=== PATIENT | male | born 1970 | race Two or more races ===

== ENCOUNTER 2018-03-30 11:02 | Inpatient (IN) | payer OTHER ==
[2018-03-30 13:07] VITALS: BMI 22.6
--- NOTE | 2018-03-30 13:14 | HP ---
CIWA Score - CIWA Score Nausea/Vomitin-Mild Nausea/No Vomiting Muscle Tremors: 4-Moderate,w/Arms Extend Anxiety: 3 Agitation: 1-Slight > Activity Paroxysmal Sweats: 1-Minimal Palms Moist Orientation: 0-Oriented Tacttile Disturbances: 2-Mild Itch/Numbness/Burn Auditory Disturbances: 1-Very Mild Visual Disturbances: 1-Very Mild Sensitivity Headache: 1-Very Mild CIWA-Ar Total Score: 15 Admission ROS BHS - HPI Chief Complaint: I'm tired of everyday drinking, I can't pay the rent anymore, I have to do something Allergies/Adverse Reactions: Allergies Allergy/AdvReac Type Severity Reaction Status Date / Time No Known Allergies Allergy Verified 03/30/18 13:10 History of Present Illness: 47 yo gentleman here for detox from alcohol. PATIENT GOES BY NAME: WAYLON ALVAREZ History of previous detox here years ago. No seizures, does have black outs. Exam Limitations: Clinical Condition - Ebola screening Have you traveled outside of the country in the last 21 days: No (N) Have you had contact with anyone from an Ebola affected area: No Have you been sick,other than usual withdrawal symptoms: No Do you have a fever: No - Review of Systems Constitutional: Loss of Appetite, Night Sweats, Changes in sleep, Weakness EENT: reports: No Symptoms Reported Respiratory: reports: No Symptoms reported Cardiac: reports: No Symptoms Reported GI: reports: Poor Fluid Intake, Vomiting, Indigestion, Abdominal cramping : reports: Frequency Musculoskeletal: reports: No Symptoms Reported Integumentary: reports: Dryness Neuro: reports: Tremors Endocrine: reports: No Symptoms Reported Hematology: reports: No Symptoms Reported Psychiatric: reports: Judgement Intact, Mood/Affect Appropiate, Orientated x3, Anxious Other Systems: Reviewed and Negative Patient History - Patient Medical History Hx Asthma: No Hx Cancer: No Hx Cardiac Disorders: No Hx Hypertension: No Hx Hypercholesterolemia: No Hx Pacemaker: No Hx Seizures: No Hx Diabetes: No Hx Gastrointestinal Disorders: No Hx Liver Disease: No Hx Genitourinary Disorders: No Hx Sexually Transmitted Disorders: No Hx Renal Disease (ESRD): No Hx Thyroid Disease: No Hx Human Immunodeficiency Virus (HIV): Yes (on meds, not sure of CD4 count) Hx Hepatitis C: Yes (treated, cleared) Hx Depression: Yes (insomnia) Hx Suicide Attempt: No Hx Bipolar Disorder: No Hx Schizophrenia: No - Patient Surgical History Other Surgical History: hemorrhoid surgery 2008 - PPD History Previous Implant?: Yes Documented Results: Negative w/o proof Implanted On Prior R Admission?: No PPD to be Administered?: Yes - Reproductive History Patient is a Female of Child Bearing Age (11 -55 yrs old): No (male) - Smoking Cessation Smoking history: Current every day smoker Have you smoked in the past 12 months: Yes Aproximately how many cigarettes per day: 20 Initiated information on smoking cessation: Yes 'Breaking Loose' booklet given: 03/30/18 - Substance & Tx. History Hx Alcohol Use: Yes Hx Substance Use: No Substance Use Type: Alcohol Hx Substance Use Treatment: Yes (detox) - Substances Abused alcohol Route: Oral Frequency: Daily Amount used: six 24 oz malt liquor Rey Cobra; 1/2 pint vodka Age of first use: 14 Date of Last Use: 03/30/18 Family Disease History - Family Disease History Family Disease History: Other: Father (, murdered, etoh), Mother ( , murdered), Brother (one - healthy), Sister (one - ? heroin use), Son ( one age 17 - healthy) Admission Physical Exam BHS - Vital Signs Vital Signs: Vital Signs - 24 hr 03/30/18 13:05 Temperature 97.8 F Pulse Rate 82 Respiratory 20 Rate Blood Pressure 158/81 - Physical General Appearance: Yes: Nourished, Appropriately Dressed, Moderate Distress, Anxious HEENTM: Yes: EOMI, Hearing grossly Normal, Normocephalic, Normal Voice, Pharynx Normal, Other (tongue coated) Respiratory: Yes: Normal Breath Sounds, No Respiratory Distress Neck: Yes: No masses,lesions,Nodules Breast: Yes: Breast Exam Deferred Cardiology: Yes: Regular Rhythm, Regular Rate Abdominal: Yes: Non Tender, Flat, Soft Genitourinary: Yes: Frequency Back: Yes: Normal Inspection Musculoskeletal: Yes: full range of Motion, Gait Steady Extremities: Yes: Normal Inspection, Normal Range of Motion, Non-Tender Neurological: Yes: Fully Oriented, Alert, Motor Strength 5/5, Normal Mood/Affect , Normal Response, Numbness Integumentary: Yes: Normal Color, Warm, Other (bottom of left foot with skin from a large blister (per patient) from stepping on glass - no pain, non red) Lymphatic: Yes: Within Normal Limits - Diagnostic (1) Alcohol dependence with uncomplicated withdrawal Current Visit: Yes Status: Chronic (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
[2018-03-30] MEDS ORDERED: P-EPHED 60MG/TRIPROLIDI 2.5MG TABLET PO PRN (13:36)
[2018-03-30] MEDS ORDERED: MAGNESIUM CITRATE 300 ML BOTTLE PO PRN (13:36)
[2018-03-30] MEDS ORDERED: MAG HYDROX/AL HYDROX/SIMETH 30 ML UNIT-DOSE CUP PO PRN (13:36)
[2018-03-30] MEDS ORDERED: IBUPROFEN 400 MG TABLET (FP) PO PRN (13:36)
[2018-03-30] MEDS ORDERED: guaiFENesin/D-METHORPHAN HB 10 ML UNIT-DOSE CUPS PO PRN (13:36)
[2018-03-30] MEDS ORDERED: ACETAMINOPHEN 325 MG TABLET (FP) PO PRN (13:36)
[2018-03-30] MEDS ORDERED: hydrOXYzine PAMOATE 25 MG CAPSULE (FP) PO PRN (13:36)
[2018-03-30] MEDS ORDERED: chlordiazePOXIDE HCL 25 MG CAPSULE PO PRN (13:36)
[2018-03-30] MEDS ORDERED: LOPERAMIDE HCL 2 MG CAPSULE PO PRN (13:36)
[2018-03-30] MEDS ORDERED: MENTHOL/PHENOL 1 EACH UD MM PRN (13:36)
[2018-03-30] MEDS ORDERED: MAGNESIUM HYDROX 2400MG/30ML ORAL SUSPENSION 30 ML CUP PO PRN (13:36)
[2018-03-30] MEDS ORDERED: PATIENT'S OWN MEDICATION (NON-FORMULARY) (Pregabalin [Lyrica -] 150 MG) PO SCH (14:00)
[2018-03-30] MEDS ORDERED: chlordiazePOXIDE HCL 25 MG CAPSULE PO ONE (14:30)
[2018-03-30 17:01] LABS: URINE APPEARANCE CLEAR; URINE BILIRUBIN NEGATIVE (<2.0 mg/dL); URINE COLOR COLORLESS; URINE GLUCOSE (UA) NEGATIVE (NEGATIVE); URINE KETONE NEGATIVE (NEGATIVE); URINE LEUK ESTERASE NEGATIVE (NEGATIVE); URINE NITRITE NEGATIVE (NEGATIVE); URINE PROTEIN NEGATIVE (NEGATIVE); URINE UROBILINOGEN NEGATIVE mg/dL (0.2-1.0)
[2018-03-30] MEDS: chlordiazePOXIDE HCL 25 MG CAPSULE PO SCH ×2 (18:29→22:19)
[2018-03-30] MEDS ORDERED: PREGABALIN 100 MG CAPSULE ONE (21:19)
[2018-03-30] MEDS ORDERED: PREGABALIN 50 MG CAPSULE ONE (21:19)
[2018-03-30] MEDS ORDERED: MELATONIN 5 MG TABLETS PO PRN (22:00)
[2018-03-30] MEDS: THIAMINE HCL 100 MG TABLET (FP) PO SCH (22:19)
[2018-03-30] MEDS: PREGABALIN 100 MG, PREGABALIN 50 MG PO SCH (22:19)
[2018-03-30] MEDS: NICOTINE POLACRILEX 4 MG GUM BUC PRN (22:42)
[2018-03-31] MEDS: chlordiazePOXIDE HCL 25 MG CAPSULE PO SCH ×4 (05:13→22:33)
[2018-03-31] MEDS ORDERED: PREGABALIN 100 MG CAPSULE ONE ×3 (05:15→21:24)
[2018-03-31] MEDS ORDERED: PREGABALIN 50 MG CAPSULE ONE ×3 (05:16→21:25)
[2018-03-31] MEDS: PREGABALIN 100 MG, PREGABALIN 50 MG PO SCH ×3 (05:16→22:32)
[2018-03-31] MEDS: ELVITEG/COB/EMTRI/TENOF (GENVOYA) TABLET (NF) PO SCH (07:46)
[2018-03-31] MEDS: NICOTINE POLACRILEX 4 MG GUM BUC PRN ×2 (07:47→10:20)
[2018-03-31] MEDS: PRENATAL VITAMINS W/ FOLIC ACID TABLET (FP) PO SCH (10:17)
[2018-03-31 10:53] LABS: HEMATOCRIT 40.6 % (35.4-49); HEMOGLOBIN 13.5 GM/dL (11.7-16.9); MCH 32.8 pg (25.7-33.7); MCHC 33.2 g/dl (32.0-35.9); MEAN CELL VOLUME 98.9 fl (80-96); MEAN PLT VOLUME 8.6 fl (7.5-11.1); PLATELET COUNT 91 K/MM3 (134-434); RBC 4.11 M/mm3 (4.00-5.60); RDW 14.8 % (11.9-15.9); WHITE BLOOD COUNT 2.3 K/mm3 (4.0-10.0)
[2018-03-31 11:08] LABS: CHLORIDE 103 mmol/L (98-107); POTASSIUM 3.7 mmol/L (3.5-5.1); SODIUM 140 mmol/L (136-145)
[2018-03-31 11:28] LABS: ALBUMIN 3.6 g/dl (3.4-5.0); ALK PHOS 150 U/L (45-117); ANION GAP 10 MMOL/L (8-16); BLOOD UREA NITROGEN 13 mg/dL (7-18); CALCIUM 8.6 mg/dL (8.5-10.1); CO2 27 mmol/L (21-32); CREATININE 0.9 mg/dL (0.7-1.3); GLUCOSE,RANDOM 113 mg/dL (74-106); SGOT/AST 62 U/L (15-37); SGPT/ALT 62 U/L (12-78); TOT PROT 8.2 g/dl (6.4-8.2)
--- NOTE | 2018-03-31 15:26 | CONSULT ---
[facility] Psychiatric Consult - Data Date of interview: 03/31/18 Admission source: Self-referred Identifying data: Mr Iglesias is a 47 years old single male, father of a 16 years old son, unemployed on SSI, domiciled seeking detox treatment for alcohol Medical History: Significant for HIV diagnosed in 2006, neuropathy, history of treatment for hepatitis C and surgery for hemorrhoid in 2008. Smokes cigarettes 1 ppd Psychiatric History: Denies histoy of previous psychiatric treatment. However reports suffering from insomnia and he is prescribed Ambien 10 mg po HS Physical/Sexual Abuse/Trauma History: Denies history of emotional, physical or sexual abuse as well as DV relationship. No service Additional Comment: Reports history of 2 previous misdemeanor arrests Mental Status Exam - Mental Status Exam Alert and Oriented to: Time, Place, Person Cognitive Function: Fair Patient Appearance: Well Groomed Mood: Hopeful, Euthymic Patient Behavior: Cooperative Speech Pattern: Clear Voice Loudness: Normal Thought Process: Intact, Goal Oriented Thought Disorder: Not Present Hallucinations: Denies Suicidal Ideation: Denies Homicidal Ideation: Denies Insight/Judgement: Poor Sleep: Poorly Appetite: Good Muscle strength/Tone: Normal Gait/Station: Normal Psychiatric Findings - Problem List ([place] 1, 2,3) (1) Alcohol-induced sleep disorder Current Visit: Yes Status: Acute (2) Alcohol dependence with uncomplicated withdrawal Current Visit: Yes Status: Acute (3) Nicotine dependence Current Visit: Yes Status: Chronic Qualifiers: Nicotine product type: cigarettes Substance use status: uncomplicated Qualified Code(s): F17.210 - Nicotine dependence, cigarettes, uncomplicated (4) HIV (human immunodeficiency virus infection) Current Visit: Yes Status: Chronic (5) 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 2) Continue inpatient detoxification
--- NOTE | 2018-03-31 15:50 | PN ---
S CIWA - CIWA Score Nausea/Vomitin-Mild Nausea/No Vomiting Muscle Tremors: 3 Anxiety: 3 Agitation: 2 Paroxysmal Sweats: 1-Minimal Palms Moist Orientation: 1-Uncertain about Date Tacttile Disturbances: 1-Very Mild Itch/Numbness Auditory Disturbances: 1-Very Mild Visual Disturbances: 0-None Headache: 0-None Present CIWA-Ar Total Score: 13 BHS Progress Note (SOAP) Subjective: sweat tremor gi distress anxiety trouble sleep at night Objective: 03/31/18 15:56 Vital Signs Temperature 97.0 F L 03/31/18 15:21 Pulse Rate 69 03/31/18 15:21 Respiratory Rate 18 03/31/18 15:21 Blood Pressure 104/59 03/31/18 15:21 O2 Sat by Pulse Oximetry (%) Laboratory Last Values WBC 2.3 K/mm3 (4.0-10.0) L 03/31/18 08:00 RBC 4.11 M/mm3 (4.00-5.60) 03/31/18 08:00 Hgb 13.5 GM/dL (11.7-16.9) 03/31/18 08:00 Hct 40.6 % (35.4-49) 03/31/18 08:00 MCV 98.9 fl (80-96) H 03/31/18 08:00 MCH 32.8 pg (25.7-33.7) 03/31/18 08:00 MCHC 33.2 g/dl (32.0-35.9) 03/31/18 08:00 RDW 14.8 % (11.9-15.9) 03/31/18 08:00 Plt Count 91 K/MM3 (134-434) L 03/31/18 08:00 MPV 8.6 fl (7.5-11.1) 03/31/18 08:00 Sodium 140 mmol/L (136-145) 03/31/18 08:00 Potassium 3.7 mmol/L (3.5-5.1) 03/31/18 08:00 Chloride 103 mmol/L (98-107) 03/31/18 08:00 Carbon Dioxide 27 mmol/L (21-32) 03/31/18 08:00 Anion Gap 10 MMOL/L (8-16) 03/31/18 08:00 BUN 13 mg/dL (7-18) 03/31/18 08:00 Creatinine 0.9 mg/dL (0.7-1.3) 03/31/18 08:00 Creat Clearance w eGFR > 60 (>60) 03/31/18 08:00 Random Glucose 113 mg/dL (74-106) H 03/31/18 08:00 Calcium 8.6 mg/dL (8.5-10.1) 03/31/18 08:00 Total Bilirubin 1.0 mg/dL (0.2-1.0) 03/31/18 08:00 AST 62 U/L (15-37) H 03/31/18 08:00 ALT 62 U/L (12-78) 03/31/18 08:00 Alkaline Phosphatase 150 U/L (45-117) H 03/31/18 08:00 Total Protein 8.2 g/dl (6.4-8.2) 03/31/18 08:00 Albumin 3.6 g/dl (3.4-5.0) 03/31/18 08:00 Urine Color Colorless 03/30/18 14:31 Urine Appearance Clear 03/30/18 14:31 Urine pH 6.0 (5.0-8.0) 03/30/18 14:31 Ur Specific [place] 1.002 (1.001-1.035) 03/30/18 14:31 Urine Protein Negative (NEGATIVE) 03/30/18 14:31 Urine Glucose (UA) Negative (NEGATIVE) 03/30/18 14:31 Urine Ketones Negative (NEGATIVE) 03/30/18 14:31 Urine Blood Negative (NEGATIVE) 03/30/18 14:31 Urine Nitrite Negative (NEGATIVE) 03/30/18 14:31 Urine Bilirubin Negative (<2.0 mg/dL) 03/30/18 14:31 Urine Urobilinogen Negative mg/dL (0.2-1.0) 03/30/18 14:31 Ur Leukocyte Esterase Negative (NEGATIVE) 03/30/18 14:31 RPR Titer Nonreactive (NONREACTIVE) 03/31/18 08:00 lab noted Assessment: 03/31/18 16:02 withdrawal sx Plan: continue detox
[2018-03-31] MEDS: ZOLPIDEM TARTRATE 10 MG TABLET (PARK CARE ONLY) PO PRN (22:32)
[2018-03-31] MEDS: THIAMINE HCL 100 MG TABLET (FP) PO SCH (22:33)
[2018-04-01] MEDS ORDERED: PREGABALIN 50 MG CAPSULE ONE ×3 (04:05→21:28)
[2018-04-01] MEDS ORDERED: PREGABALIN 100 MG CAPSULE ONE ×3 (04:05→21:28)
[2018-04-01] MEDS: chlordiazePOXIDE HCL 25 MG CAPSULE PO SCH ×2 (04:07→11:53)
[2018-04-01] MEDS: PREGABALIN 100 MG, PREGABALIN 50 MG PO SCH ×3 (06:00→22:19)
[2018-04-01] MEDS: ELVITEG/COB/EMTRI/TENOF (GENVOYA) TABLET (NF) PO SCH (07:53)
[2018-04-01] MEDS: NICOTINE POLACRILEX 4 MG GUM BUC PRN (09:16)
[2018-04-01 10:10] LABS: HEMATOCRIT 40.7 % (35.4-49); HEMOGLOBIN 13.4 GM/dL (11.7-16.9); MCH 32.6 pg (25.7-33.7); MCHC 32.9 g/dl (32.0-35.9); MEAN CELL VOLUME 99.2 fl (80-96); MEAN PLT VOLUME 9.3 fl (7.5-11.1); PLATELET COUNT 90 K/MM3 (134-434); RBC 4.11 M/mm3 (4.00-5.60); RDW 14.6 % (11.9-15.9); WHITE BLOOD COUNT 2.2 K/mm3 (4.0-10.0)
--- NOTE | 2018-04-01 11:24 | EKG ---
Test Reason : Blood Pressure : / mmHG Vent. Rate : 074 BPM Atrial Rate : 074 BPM P-R Int : 166 ms QRS Dur : 092 ms QT Int : 374 ms P-R-T Axes : 074 069 055 degrees QTc Int : 415 ms NORMAL SINUS RHYTHM NORMAL ECG NO PREVIOUS ECGS AVAILABLE Confirmed by LISSETH PACKER MD ([id number]) on 04/01/2018 11:24:27 AM Referred By: Confirmed By:LISSETH PACKER MD
[2018-04-01] MEDS: PRENATAL VITAMINS W/ FOLIC ACID TABLET (FP) PO SCH (11:53)
--- NOTE | 2018-04-01 12:24 | PN ---
Psychiatric Progress Note Vital Signs: Vital Signs Period Temp Pulse Resp BP Sys/Jeff Pulse Ox Last 24 Hr 95.5 F-98.1 F 69-81 18-18 104-134/59-75 Date of Session: 04/01/18 Chief Complaint:: " I want to be addressed as Louis Cuba.That is my legal name." HPI: Patient was admitted to [address] [place] [address] for detoxification for alcohol dependence.Psychiatric re-evaluation is requested in response to this patient's inclination to discharge against medical advice.No indication of an acute psychiatric condition.Patient is upset with staff because of a misunderstanding about his name.Wants to be addressed as Louis Cuba (new legal name) instead of Scooter Iglesias. ROS: Unremarkable.No somatic complaints.Intact cognition. Current Medications: Active Medications Generic Name Dose Route Start Last Admin Trade Name Freq PRN Reason Stop Dose Admin Acetaminophen 650 mg 03/30/18 13:36 Tylenol - PO Q4H PRN FEVER Al Hydroxide/Mg Hydroxide 30 ml 03/30/18 13:36 Mylanta Oral Suspension - PO Q6H PRN DYSPEPSIA Chlordiazepoxide HCl 15 mg 04/01/18 17:00 Librium - PO 04/02/18 11:01 [id number] ROBERTO Chlordiazepoxide HCl 25 mg 03/30/18 13:36 Librium - PO 04/02/18 13:35 Q4H PRN WITHDRAWAL(CONT SUBST) Chlordiazepoxide HCl 10 mg 04/02/18 17:00 Librium - PO 04/03/18 11:01 [id number] ROBERTO Elvitegravir/Cobicis/Emtricit/Tenof 1 tab 03/31/18 08:00 04/01/18 07:53 Genvoya (Non-Formulary) PO 1 tab DAILY@0800 ROBERTO Administration Eucalyptus/Menthol/Phenol/Sorbitol 1 each 03/30/18 13:36 Cepastat Lozenge - MM Q4H PRN SORE THROAT Guaifenesin 10 ml 03/30/18 13:36 Robitussin Dm - PO Q6H PRN COUGH Hydroxyzine Pamoate 25 mg 03/30/18 13:36 Vistaril - PO Q4H PRN AGITATION Ibuprofen 400 mg 03/30/18 13:36 09/09/18 22:35 Motrin - PO 400 mg Q6H PRN Administration PAIN LEVEL 4-6 Loperamide HCl 4 mg 03/30/18 13:36 Imodium - PO Q6H PRN DIARRHEA Magnesium Citrate 300 ml 03/30/18 13:36 Citroma - PO Q48H PRN CONSTIPATION Magnesium Hydroxide 30 ml 03/30/18 13:36 Milk Of Magnesia - PO DAILY PRN CONSTIPATION Melatonin 5 mg 03/30/18 22:00 Melatonin PO HS PRN INSOMNIA Nicotine Polacrilex 4 mg 03/30/18 13:36 04/01/18 09:16 Nicorette Gum - BUC 4 mg Q2H PRN Administration NICOTINE REPLACEMENT RX Pregabalin 100 mg/ Pregabalin 150 mg 03/30/18 22:00 04/01/18 06:00 50 mg PO 04/06/18 14:01 150 mg TID ROBERTO Administration Multivit/Folic Acid/Iron 1 tab 03/31/18 10:00 04/01/18 11:53 Vitamins (Sjr) - PO Not Given DAILY ROBERTO Pseudoephedrine/Triprolidine 1 combo 03/30/18 13:36 Actifed - PO TID PRN NASAL CONGESTION Thiamine HCl 100 mg 03/30/18 22:00 03/31/18 22:33 Vitamin B1 - PO 100 mg HS ROBERTO Administration Zolpidem Tartrate 10 mg 03/31/18 15:31 03/31/18 22:32 Ambien - PO 10 mg HS PRN Administration INSOMNIA Medication(s) Change(s): None.Not applicable. Current Side Effect: No Lab tests ordered: No Lab tests reviewed: Yes Provider note:: Case presented by UNRULY Cunningham.Dr Covington's note of 03/31/18 : appreciated.Met with patient.Doing well.No evidence of psychiatric issues.Mr Cuba (leonardo Iglesias) simply wants people to register his newly changed name in his current [facility] documents." Otherwise, you leave me no choice but to leave this program and seek help elsewhere." Patient is noted as well-controlled, articulate,clear-minded and coherent/logical.No delusions elicited.Mental status is stable.Baseline.NO justification or indication for active psychiatric intervention.Discussed with assigned nurse.Recommendation : address patient's LEGITIMATE concerns about the clarification of his name. Total face to face time:: 35 Mental Status Exam - Mental Status Exam Alert and Oriented to: Time, Place, Person Cognitive Function: Good Patient Appearance: Well Groomed Mood: Hopeful, Euthymic Affect: Appropriate, Normal Range Patient Behavior: Appropriate, Cooperative Speech Pattern: Clear, Appropriate Voice Loudness: Normal Thought Process: Intact, Goal Oriented Thought Disorder: Not Present Hallucinations: Denies Suicidal Ideation: Denies Homicidal Ideation: Denies Insight/Judgement: Good Sleep: Well Appetite: Good Muscle strength/Tone: Normal Gait/Station: Normal Psychiatric Treatment Plan - Problem List (1) Alcohol dependence with uncomplicated withdrawal Comment: . (2) Nicotine dependence Qualifiers: Nicotine product type: cigarettes Substance use status: in withdrawal Qualified Code(s): F17.213 - Nicotine dependence, cigarettes, with withdrawal Comment: .
--- NOTE | 2018-04-01 13:55 | PN ---
S CIWA - CIWA Score Nausea/Vomitin-Mild Nausea/No Vomiting Muscle Tremors: 3 Anxiety: 2 Agitation: 4-Moderately Restless Paroxysmal Sweats: 1-Minimal Palms Moist Orientation: 0-Oriented Tacttile Disturbances: 1-Very Mild Itch/Numbness Auditory Disturbances: 0-None Visual Disturbances: 0-None Headache: 0-None Present CIWA-Ar Total Score: 12 BHS Progress Note (SOAP) Subjective: sweat tremor irritable anxiety restlessness agitated about that the patient changes his name and officially set x 6 months but the insurance has not change his name upon admission to [facility] that old name continue exist patient wants to change his name before rehab admission discussed with registra counselor and 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 new ID obtained with a copy in chart Objective: 04/01/18 13:53 Vital Signs Temperature 97.7 F 04/01/18 09:28 Pulse Rate 77 04/01/18 09:28 Respiratory Rate 18 04/01/18 09:28 Blood Pressure 109/62 04/01/18 09:28 O2 Sat by Pulse Oximetry (%) Laboratory Last Values WBC 2.2 K/mm3 (4.0-10.0) L 04/01/18 07:00 RBC 4.11 M/mm3 (4.00-5.60) 04/01/18 07:00 Hgb 13.4 GM/dL (11.7-16.9) 04/01/18 07:00 Hct 40.7 % (35.4-49) 04/01/18 07:00 MCV 99.2 fl (80-96) H 04/01/18 07:00 MCH 32.6 pg (25.7-33.7) 04/01/18 07:00 MCHC 32.9 g/dl (32.0-35.9) 04/01/18 07:00 RDW 14.6 % (11.9-15.9) 04/01/18 07:00 Plt Count 90 K/MM3 (134-434) L 04/01/18 07:00 MPV 9.3 fl (7.5-11.1) 04/01/18 07:00 Sodium 140 mmol/L (136-145) 03/31/18 08:00 Potassium 3.7 mmol/L (3.5-5.1) 03/31/18 08:00 Chloride 103 mmol/L (98-107) 03/31/18 08:00 Carbon Dioxide 27 mmol/L (21-32) 03/31/18 08:00 Anion Gap 10 MMOL/L (8-16) 03/31/18 08:00 BUN 13 mg/dL (7-18) 03/31/18 08:00 Creatinine 0.9 mg/dL (0.7-1.3) 03/31/18 08:00 Creat Clearance w eGFR > 60 (>60) 03/31/18 08:00 Random Glucose 113 mg/dL (74-106) H 03/31/18 08:00 Calcium 8.6 mg/dL (8.5-10.1) 03/31/18 08:00 Total Bilirubin 1.0 mg/dL (0.2-1.0) 03/31/18 08:00 AST 62 U/L (15-37) H 03/31/18 08:00 ALT 62 U/L (12-78) 03/31/18 08:00 Alkaline Phosphatase 150 U/L (45-117) H 03/31/18 08:00 Total Protein 8.2 g/dl (6.4-8.2) 03/31/18 08:00 Albumin 3.6 g/dl (3.4-5.0) 03/31/18 08:00 Urine Color Colorless 03/30/18 14:31 Urine Appearance Clear 03/30/18 14:31 Urine pH 6.0 (5.0-8.0) 03/30/18 14:31 Ur Specific [place] 1.002 (1.001-1.035) 03/30/18 14:31 Urine Protein Negative (NEGATIVE) 03/30/18 14:31 Urine Glucose (UA) Negative (NEGATIVE) 03/30/18 14:31 Urine Ketones Negative (NEGATIVE) 03/30/18 14:31 Urine Blood Negative (NEGATIVE) 03/30/18 14:31 Urine Nitrite Negative (NEGATIVE) 03/30/18 14:31 Urine Bilirubin Negative (<2.0 mg/dL) 03/30/18 14:31 Urine Urobilinogen Negative mg/dL (0.2-1.0) 03/30/18 14:31 Ur Leukocyte Esterase Negative (NEGATIVE) 03/30/18 14:31 RPR Titer Nonreactive (NONREACTIVE) 03/31/18 08:00 lab noted repeat cbc discuss ART adherence Assessment: 04/01/18 13:54 withdrawal sx hiv Plan: continue detox patient has genvoy with him upon detox admission patient wants to continue ART with new name in rehab
[2018-04-01] MEDS: chlordiazePOXIDE 5 MG CAPSULE PO SCH ×2 (17:58→22:19)
[2018-04-01] MEDS: THIAMINE HCL 100 MG TABLET (FP) PO SCH (22:20)
[2018-04-01] MEDS: ZOLPIDEM TARTRATE 10 MG TABLET (PARK CARE ONLY) PO PRN (22:21)
[2018-04-02] MEDS ORDERED: PREGABALIN 50 MG CAPSULE ONE ×3 (04:41→21:23)
[2018-04-02] MEDS ORDERED: PREGABALIN 100 MG CAPSULE ONE ×3 (04:41→21:22)
[2018-04-02] MEDS: PREGABALIN 100 MG, PREGABALIN 50 MG PO SCH ×3 (05:12→22:29)
[2018-04-02] MEDS: chlordiazePOXIDE 5 MG CAPSULE PO SCH ×2 (05:12→10:30)
[2018-04-02] MEDS: ELVITEG/COB/EMTRI/TENOF (GENVOYA) TABLET (NF) PO SCH (08:35)
[2018-04-02] MEDS: PRENATAL VITAMINS W/ FOLIC ACID TABLET (FP) PO SCH (10:30)
--- NOTE | 2018-04-02 14:46 | PN ---
BHS Progress Note (SOAP) Subjective: feeling better less sweat no tremor social with peers on [address] Objective: 04/02/18 14:45 Vital Signs Temperature 97.9 F 04/02/18 13:17 Pulse Rate 79 04/02/18 13:17 Respiratory Rate 18 04/02/18 13:17 Blood Pressure 127/74 04/02/18 13:17 O2 Sat by Pulse Oximetry (%) Laboratory Last Values WBC 2.2 K/mm3 (4.0-10.0) L 04/01/18 07:00 RBC 4.11 M/mm3 (4.00-5.60) 04/01/18 07:00 Hgb 13.4 GM/dL (11.7-16.9) 04/01/18 07:00 Hct 40.7 % (35.4-49) 04/01/18 07:00 MCV 99.2 fl (80-96) H 04/01/18 07:00 MCH 32.6 pg (25.7-33.7) 04/01/18 07:00 MCHC 32.9 g/dl (32.0-35.9) 04/01/18 07:00 RDW 14.6 % (11.9-15.9) 04/01/18 07:00 Plt Count 90 K/MM3 (134-434) L 04/01/18 07:00 MPV 9.3 fl (7.5-11.1) 04/01/18 07:00 Sodium 140 mmol/L (136-145) 03/31/18 08:00 Potassium 3.7 mmol/L (3.5-5.1) 03/31/18 08:00 Chloride 103 mmol/L (98-107) 03/31/18 08:00 Carbon Dioxide 27 mmol/L (21-32) 03/31/18 08:00 Anion Gap 10 MMOL/L (8-16) 03/31/18 08:00 BUN 13 mg/dL (7-18) 03/31/18 08:00 Creatinine 0.9 mg/dL (0.7-1.3) 03/31/18 08:00 Creat Clearance w eGFR > 60 (>60) 03/31/18 08:00 Random Glucose 113 mg/dL (74-106) H 03/31/18 08:00 Calcium 8.6 mg/dL (8.5-10.1) 03/31/18 08:00 Total Bilirubin 1.0 mg/dL (0.2-1.0) 03/31/18 08:00 AST 62 U/L (15-37) H 03/31/18 08:00 ALT 62 U/L (12-78) 03/31/18 08:00 Alkaline Phosphatase 150 U/L (45-117) H 03/31/18 08:00 Total Protein 8.2 g/dl (6.4-8.2) 03/31/18 08:00 Albumin 3.6 g/dl (3.4-5.0) 03/31/18 08:00 Urine Color Colorless 03/30/18 14:31 Urine Appearance Clear 03/30/18 14:31 Urine pH 6.0 (5.0-8.0) 03/30/18 14:31 Ur Specific [place] 1.002 (1.001-1.035) 03/30/18 14:31 Urine Protein Negative (NEGATIVE) 03/30/18 14:31 Urine Glucose (UA) Negative (NEGATIVE) 03/30/18 14:31 Urine Ketones Negative (NEGATIVE) 03/30/18 14:31 Urine Blood Negative (NEGATIVE) 03/30/18 14:31 Urine Nitrite Negative (NEGATIVE) 03/30/18 14:31 Urine Bilirubin Negative (<2.0 mg/dL) 03/30/18 14:31 Urine Urobilinogen Negative mg/dL (0.2-1.0) 03/30/18 14:31 Ur Leukocyte Esterase Negative (NEGATIVE) 03/30/18 14:31 RPR Titer Nonreactive (NONREACTIVE) 03/31/18 08:00 lab noted Assessment: 04/02/18 14:45 mild withdrawal sx Plan: medically supervised detox
[2018-04-02 15:27] LABS: HEMATOCRIT 38.5 % (35.4-49); HEMOGLOBIN 13.2 GM/dL (11.7-16.9); MCH 34.1 pg (25.7-33.7); MCHC 34.2 g/dl (32.0-35.9); MEAN CELL VOLUME 99.8 fl (80-96); MEAN PLT VOLUME 10.1 fl (7.5-11.1); PLATELET COUNT 88 K/MM3 (134-434); RBC 3.86 M/mm3 (4.00-5.60); RDW 14.9 % (11.9-15.9); WHITE BLOOD COUNT 2.1 K/mm3 (4.0-10.0)
[2018-04-02] MEDS: chlordiazePOXIDE HCL 10 MG CAPSULE PO SCH ×2 (17:42→22:29)
[2018-04-02] MEDS: ZOLPIDEM TARTRATE 10 MG TABLET (PARK CARE ONLY) PO PRN (22:29)
[2018-04-02] MEDS: THIAMINE HCL 100 MG TABLET (FP) PO SCH (22:29)
[2018-04-03] MEDS ORDERED: PREGABALIN 50 MG CAPSULE ONE (04:03)
[2018-04-03] MEDS ORDERED: PREGABALIN 100 MG CAPSULE ONE (04:03)
[2018-04-03] MEDS: chlordiazePOXIDE HCL 10 MG CAPSULE PO SCH (05:46)
[2018-04-03] MEDS: PREGABALIN 100 MG, PREGABALIN 50 MG PO SCH (05:46)
[2018-04-03 06:25] VITALS: BP 109/68; PULSE 83; TEMP 97.7
--- NOTE | 2018-04-03 10:40 | DS ---
[facility] Detox Discharge Summary Admission Date: 03/30/18 Discharge Date: 04/03/18 - History Present History: Alcohol Dependence Additional Comments: 47 years old male admitted on 03/30/18 for alcohol withdrawal sx completed alcohol detox regimen tolerated well denies alcohol withdrawal sx alert oriented x 3 no acute distress aftercare revelation patient wants to visit infectious specialist first and agrees return to [facility] for rehab - Physical Exam Results Vital Signs: Vital Signs Temperature 97.7 F 04/03/18 06:25 Pulse Rate 83 04/03/18 06:25 Respiratory Rate 18 04/03/18 06:25 Blood Pressure 109/68 04/03/18 06:25 O2 Sat by Pulse Oximetry (%) Pertinent Admission Physical Exam Findings: alcohol withdrawal sx Vital Signs Temperature 97.7 F 04/03/18 06:25 Pulse Rate 83 04/03/18 06:25 Respiratory Rate 18 04/03/18 06:25 Blood Pressure 109/68 04/03/18 06:25 O2 Sat by Pulse Oximetry (%) Laboratory Last Values WBC 2.1 K/mm3 (4.0-10.0) L 04/02/18 11:05 RBC 3.86 M/mm3 (4.00-5.60) L 04/02/18 11:05 Hgb 13.2 GM/dL (11.7-16.9) 04/02/18 11:05 Hct 38.5 % (35.4-49) 04/02/18 11:05 MCV 99.8 fl (80-96) H 04/02/18 11:05 MCH 34.1 pg (25.7-33.7) H 04/02/18 11:05 MCHC 34.2 g/dl (32.0-35.9) 04/02/18 11:05 RDW 14.9 % (11.9-15.9) 04/02/18 11:05 Plt Count 88 K/MM3 (134-434) L 04/02/18 11:05 MPV 10.1 fl (7.5-11.1) 04/02/18 11:05 Sodium 140 mmol/L (136-145) 03/31/18 08:00 Potassium 3.7 mmol/L (3.5-5.1) 03/31/18 08:00 Chloride 103 mmol/L (98-107) 03/31/18 08:00 Carbon Dioxide 27 mmol/L (21-32) 03/31/18 08:00 Anion Gap 10 MMOL/L (8-16) 03/31/18 08:00 BUN 13 mg/dL (7-18) 03/31/18 08:00 Creatinine 0.9 mg/dL (0.7-1.3) 03/31/18 08:00 Creat Clearance w eGFR > 60 (>60) 03/31/18 08:00 Random Glucose 113 mg/dL (74-106) H 03/31/18 08:00 Calcium 8.6 mg/dL (8.5-10.1) 03/31/18 08:00 Total Bilirubin 1.0 mg/dL (0.2-1.0) 03/31/18 08:00 AST 62 U/L (15-37) H 03/31/18 08:00 ALT 62 U/L (12-78) 03/31/18 08:00 Alkaline Phosphatase 150 U/L (45-117) H 03/31/18 08:00 Total Protein 8.2 g/dl (6.4-8.2) 03/31/18 08:00 Albumin 3.6 g/dl (3.4-5.0) 03/31/18 08:00 Urine Color Colorless 03/30/18 14:31 Urine Appearance Clear 03/30/18 14:31 Urine pH 6.0 (5.0-8.0) 03/30/18 14:31 Ur Specific [place] 1.002 (1.001-1.035) 03/30/18 14:31 Urine Protein Negative (NEGATIVE) 03/30/18 14:31 Urine Glucose (UA) Negative (NEGATIVE) 03/30/18 14:31 Urine Ketones Negative (NEGATIVE) 03/30/18 14:31 Urine Blood Negative (NEGATIVE) 03/30/18 14:31 Urine Nitrite Negative (NEGATIVE) 03/30/18 14:31 Urine Bilirubin Negative (<2.0 mg/dL) 03/30/18 14:31 Urine Urobilinogen Negative mg/dL (0.2-1.0) 03/30/18 14:31 Ur Leukocyte Esterase Negative (NEGATIVE) 03/30/18 14:31 RPR Titer Nonreactive (NONREACTIVE) 03/31/18 08:00 lab noted discuss low cbc reported low cbc in the past will readdress with infectious disease specialist after detox - Treatment Hospital Course: Detox Protocol Followed, Detoxed Safely, Responded well, Discharged Condition Good, Rehab Referral Accepted Patient has Accepted a Rehab Referral to: [facility] - Medication Discharge Medications: Ambulatory Orders Elviteg/Cob/Emtri/Tenof Alafen [Genvoya Tablet] 1 each PO DAILY 03/30/18 Pregabalin [Lyrica -] 150 mg PO TID 03/30/18 Zolpidem Tartrate [Ambien] 10 mg PO HS 03/30/18 - Diagnosis (1) Alcohol dependence with uncomplicated withdrawal Status: Acute (2) HIV (human immunodeficiency virus infection) Status: Chronic (3) 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
== END 2018-04-03 09:00 | disposition home or self-care (01) | DRG 775 ==
LOC: YASAS 11:02 → Y6N 14:05
PROC: HZ2ZZZZ Detoxification Services for Substance Abuse Treatment (ICD-10-PCS; principal; 2018-03-30)
DX: F10.230 Alcohol dependence with withdrawal, uncomplicated (principal); F17.213 Nicotine dependence, cigarettes, with withdrawal; F10.282 Alcohol dependence with alcohol-induced sleep disorder; G47.00 Insomnia, unspecified; G62.9 Polyneuropathy, unspecified; Z86.19 Personal history of other infectious and parasitic diseases; Z21 Asymptomatic human immunodeficiency virus [HIV] infection status
CPT/HCPCS: 36415; 80053; 81003; 85027; 86593; 93005; 93010

== ENCOUNTER 2018-12-04 11:55 | Inpatient (IN) | payer OTHER ==
[2018-12-04 16:52] VITALS: BMI 23.8
--- NOTE | 2018-12-04 17:11 | HP ---
CIWA Score Nausea/Vomitin-No Nausea/No Vomiting Muscle Tremors: 4-Moderate,w/Arms Extend Anxiety: 4-Mod. Anxious/Guarded Agitation: 4-Moderately Restless Paroxysmal Sweats: 3 Orientation: 3-Disoriented Date>2 days Tacttile Disturbances: 3-Moderate Itch/Numb/Burn Auditory Disturbances: 0-None Visual Disturbances: 2-Mild Sensitivity Headache: 0-None Present CIWA-Ar Total Score: 23 - Admission Criteria OASAS Guidelines: Admission for Medically Managed Detox: Requires at least one of the followin. CIWA greater than 12 2. Seizures within the past 24 hours 3. Delirium tremens within the past 24 hours 4. Hallucinations within the past 24 hours 5. Acute intervention needed for co occurring medical disorder 6. Acute intervention needed for co occurring psychiatric disorder 7. Severe withdrawal that cannot be handled at a lower level of care (continued vomiting, continued diarrhea, abnormal vital signs) requiring intravenous medication and/or fluids 8. Patient presents the following: CIWA greater than 12, Acute intervention needed for co-occurring med or psych disorder Admission Criteria Met: Admission criteria met Admission ROS [facility] Chief Complaint: C/O WITHDRAWAL SX'S. SEEKING DETOX Allergies/Adverse Reactions: Allergies Allergy/AdvReac Type Severity Reaction Status Date / Time No Known Allergies Allergy Verified 12/04/18 16:39 History of Present Illness: 48 Y.O. MALE WITH ALCOHOLISM HERE FOR DETOX. CLIENT IS KNOWN TO THIS PROGRAM. LAST ADMIT OVER A YEAR AGO. HE IS SELF REFERRED WITH C/O WITHDRAWAL SX'S. CIWA 23. MOST RECENT TXMENT AT [facility] 06/2018. DENIES ANY SIGNIFICANT PERIOD OF CLEAN TIME. CLIENT REPORT HE DRINKS DAILY. DENIES HX/O SEIZURES, SI/HI/AVH,. + BLACK OUTS. DOMICILED, UNMEPLOYED- SSI, DENIES LEGALS Exam Limitations: No Limitations - Ebola screening Have you traveled outside of the country in the last 21 days: No (N) Have you had contact with anyone from an Ebola affected area: No Do you have a fever: No - Review of Systems Constitutional: Chills, Night Sweats, Changes in sleep, Unintentional Wgt. Loss EENT: reports: No Symptoms Reported Respiratory: reports: No Symptoms reported Cardiac: reports: No Symptoms Reported GI: reports: Poor Fluid Intake : reports: No Symptoms Reported Musculoskeletal: reports: Back Pain (CHRONIC) Integumentary: reports: Flushing Neuro: reports: Numbness (NEUROPATHY TO BOTH FEET), Tingling Endocrine: reports: No Symptoms Reported Hematology: reports: No Symptoms Reported Psychiatric: reports: Anxious Other Systems: Reviewed and Negative Patient History - Patient Medical History Hx Anemia: No Hx Asthma: No Hx Chronic Obstructive Pulmonary Disease (COPD): No Hx Cancer: No Hx Cardiac Disorders: No Hx Congestive Heart Failure: No Hx Hypertension: No Hx Hypercholesterolemia: No Hx Pacemaker: No HX Cerebrovascular Accident: No Hx Seizures: No Hx Dementia: No Hx Diabetes: No Hx Gastrointestinal Disorders: No Hx Liver Disease: No Hx Genitourinary Disorders: No Hx Sexually Transmitted Disorders: No Hx Renal Disease (ESRD): No Hx Thyroid Disease: No Hx Human Immunodeficiency Virus (HIV): Yes Hx Hepatitis C: Yes (treated,) Hx Depression: No Hx Suicide Attempt: No Hx Bipolar Disorder: No Hx Schizophrenia: No Other Medical History: DENIES - Patient Surgical History Past Surgical History: No Other Surgical History: hemorrhoid surgery 2008 Anesthesia Reaction: No - PPD History Previous Implant?: Yes Documented Results: Negative w/proof Implanted On Prior R Admission?: Yes Date: 04/01/18 Results: 0MM PPD to be Administered?: No - Smoking Cessation Smoking history: Current every day smoker Have you smoked in the past 12 months: Yes Aproximately how many cigarettes per day: 5 Cigars Per Day: 0 Hx Chewing Tobacco Use: No Initiated information on smoking cessation: Yes 'Breaking Loose' booklet given: 12/04/18 - Substance & Tx. History Hx Alcohol Use: Yes Hx Substance Use: Yes Substance Use Type: Alcohol Hx Substance Use Treatment: Yes ([facility]) - Substances abused Alcohol Substance route: Oral Frequency: Daily Amount used: 6 CANS OF BEER (16 OUNCES) 1 PINT OF VODKA Age of first use: 13 Date of last use: 12/04/18 Family Disease History - Family Disease History Family Disease History: Other: Father (, murdered, etoh), Mother ( , murdered), Brother (one - healthy), Sister (one - ? heroin use), Son ( one age 17 - healthy) Admission Physical Exam BHS - Vital Signs Vital Signs: Vital Signs - 24 hr 12/04/18 16:49 Temperature 97.7 F Pulse Rate 104 H Respiratory 18 Rate Blood Pressure 139/78 - Physical General Appearance: Yes: Mild Distress, Anxious, Other (FLUSHED) HEENTM: Yes: EOMI, Normocephalic, Normal Voice, BRIDGET, Pharynx Normal Respiratory: Yes: Chest Non-Tender, Lungs Clear, Normal Breath Sounds, No Respiratory Distress, No Accessory Muscle Use Neck: Yes: No masses,lesions,Nodules, Supple, Trachea in good position Breast: Yes: Breast Exam Deferred Cardiology: Yes: Regular Rhythm, Regular Rate, S1, S2 Abdominal: Yes: Non Tender, Soft, Increased Bowel Sounds Genitourinary: Yes: Within Normal Limits Back: Yes: Normal Inspection Musculoskeletal: Yes: full range of Motion, Gait Steady Extremities: Yes: Normal Capillary Refill, Normal Range of Motion, Non-Tender, Tremors Neurological: Yes: Alert, Motor Strength 5/5 Integumentary: Yes: Dry, Warm, Other (FLUSHED SUPERFICIAL ABRASION TO FACE AND ARMS FROM ITCHING SELF) Lymphatic: Yes: Within Normal Limits - Diagnostic (1) Drug-induced anxiety disorder Current Visit: Yes Status: Acute (2) Alcohol dependence with uncomplicated withdrawal Current Visit: Yes Status: Acute Comment: . (3) Nicotine dependence Current Visit: Yes Status: Chronic Qualifiers: Nicotine product type: cigarettes Substance use status: in withdrawal Qualified Code(s): F17.213 - Nicotine dependence, cigarettes, with withdrawal Comment: . 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
[2018-12-04] MEDS ORDERED: DICYCLOMINE HCL 10 MG CAPSULE PO PRN (17:17)
[2018-12-04] MEDS ORDERED: BISMUTH SUBSALICYLATE 524 MG/30 ML UD PO PRN (17:17)
[2018-12-04] MEDS ORDERED: ACETAMINOPHEN 325 MG TABLET (FP) PO PRN (17:17)
[2018-12-04] MEDS ORDERED: ONDANSETRON *ODT* 4 MG TABLET SL PRN (17:17)
[2018-12-04] MEDS ORDERED: MELATONIN 5 MG TABLETS PO PRN (17:17)
[2018-12-04] MEDS ORDERED: hydrOXYzine PAMOATE 25 MG CAPSULE (FP) PO PRN (17:17)
[2018-12-04] MEDS ORDERED: guaiFENesin 200 MG/10 ML 10 ML UNIT-DOSE CUPS PO PRN (17:17)
[2018-12-04] MEDS ORDERED: MAGNESIUM CITRATE 300 ML BOTTLE PO PRN (17:17)
[2018-12-04] MEDS ORDERED: METHOCARBAMOL 500 MG TABLET PO PRN (17:17)
[2018-12-04] MEDS ORDERED: NICOTINE POLACRILEX 2 MG GUM BUC PRN (17:17)
[2018-12-04] MEDS ORDERED: MAGNESIUM HYDROX 2400MG/30ML ORAL SUSPENSION 30 ML CUP PO PRN (17:17)
[2018-12-04] MEDS ORDERED: chlordiazePOXIDE HCL 25 MG CAPSULE PO PRN (17:17)
[2018-12-04] MEDS ORDERED: P-EPHED 60MG/TRIPROLIDI 2.5MG TABLET PO PRN (17:17)
[2018-12-04] MEDS ORDERED: MENTHOL/PHENOL 1 EACH UD MM PRN (17:17)
[2018-12-04] MEDS ORDERED: IBUPROFEN 400 MG TABLET (FP) PO PRN (17:17)
[2018-12-04] MEDS ORDERED: MAG HYDROX/AL HYDROX/SIMETH 30 ML UNIT-DOSE CUP PO PRN (17:17)
[2018-12-04] MEDS: chlordiazePOXIDE HCL 25 MG CAPSULE PO SCH ×2 (18:04→22:23)
[2018-12-04] MEDS: THIAMINE HCL 100 MG TABLET (FP) PO SCH (22:23)
[2018-12-04] MEDS: PREGABALIN 75 MG CAPSULE PO SCH (22:23)
[2018-12-05] MEDS: PREGABALIN 75 MG CAPSULE PO SCH ×3 (05:46→22:09)
[2018-12-05] MEDS: chlordiazePOXIDE HCL 25 MG CAPSULE PO SCH ×4 (05:46→22:09)
[2018-12-05] MEDS: PATIENT'S OWN MEDICATION (NON-FORMULARY) (Diclofenac Sodium [Voltaren] 100 GM) TP PRN (05:57)
[2018-12-05] MEDS: BICTEGRAV/EMTRICIT/TENOFOV (BIKTARVY) 50-200-25 MG TABLET PO SCH (08:04)
--- NOTE | 2018-12-05 09:27 | PN ---
S CIWA - CIWA Score Nausea/Vomitin-Mild Nausea/No Vomiting Muscle Tremors: 3 Anxiety: 3 Agitation: 3 Paroxysmal Sweats: 1-Minimal Palms Moist Orientation: 2-Disoriented Date<2 days Tacttile Disturbances: 0-None Auditory Disturbances: 0-None Visual Disturbances: 0-None Headache: 2-Mild CIWA-Ar Total Score: 15 BHS Progress Note (SOAP) Subjective: doing well with librium protocol had breakfast social with peers in day room Objective: 12/05/18 09:27 Vital Signs Temperature 97.7 F 12/05/18 06:10 Pulse Rate 80 12/05/18 06:10 Respiratory Rate 18 12/05/18 06:10 Blood Pressure 113/70 12/05/18 06:10 O2 Sat by Pulse Oximetry (%) lab pending Assessment: 12/05/18 09:27 alcohol withdrawal sx Plan: continue librium detox
[2018-12-05] MEDS: NICOTINE 14 MG/24 HOURS TOPICAL PATCH TD SCH (10:04)
[2018-12-05] MEDS: SULFAMETHOXAZOLE/TRIMETHOPRIM 800MG/160MG D.S. TABLET PO SCH (10:05)
[2018-12-05] MEDS: PRENATAL VITAMINS W/ FOLIC ACID TABLET (FP) PO SCH (10:05)
[2018-12-05 10:14] LABS: ALBUMIN 3.3 g/dl (3.4-5.0); BILIRUBIN,TOTAL 0.9 mg/dL (0.2-1); CALCIUM 8.6 mg/dL (8.5-10.1); CREATININE 0.9 mg/dL (0.55-1.3); POTASSIUM 3.9 mmol/L (3.5-5.1); TOT PROT 6.9 g/dl (6.4-8.2)
--- NOTE | 2018-12-05 10:17 | CONSULT ---
[facility] - Data Date of interview: 12/05/18 [facility] Identifying data: Patient is a 48 year old single male, father of one, unemployed, domiciled, and is supported by [facility]. This is one of multiple admissions to detox at [facility]. Patient admitted to for alcohol dependence. Substance Abuse History: Smoking Cessation. Smoking history: Current every day smoker. Have you smoked in the past 12 months: Yes. Aproximately how many cigarettes per day: 5. Cigars Per Day: 0. Hx Chewing Tobacco Use: No. Initiated information on smoking cessation: Yes. 'Breaking Loose' booklet given : 12/04/18. - Substance & Tx. History. Hx Alcohol Use: Yes. Hx Substance Use : Yes. Substance Use Type: Alcohol. Hx Substance Use Treatment: Yes ([facility]). - Substances abused. Alcohol. Substance route: Oral. Frequency: Daily. Amount used: 6 CANS OF BEER (16 OUNCES) 1 PINT OF VODKA. Age of first use: 13. Date of last use: 12/04/18 Medical History: Significant for hemorrhoid surgery 2009 Psychiatric History: Patient denies h/o psychiatric hospitalization, outpatient care, and suicide attempt. He reports history of insomnia that has been treated with ambien. At present he reports stable mood but is experiencing difficulty sleeping. Physical/Sexual Abuse/Trauma History: denies. Mental Status Exam - Mental Status Exam Alert and Oriented to: Time, Place, Person Cognitive Function: Good Patient Appearance: Well Groomed Mood: Euthymic Affect: Mood Congruent Patient Behavior: Cooperative Speech Pattern: Appropriate Voice Loudness: Normal Thought Process: Goal Oriented Thought Disorder: Not Present Hallucinations: Denies Suicidal Ideation: Denies Homicidal Ideation: Denies Insight/Judgement: Poor Sleep: Poorly Appetite: Fair Muscle strength/Tone: Normal Gait/Station: Normal Psychiatric Findings - Problem List ([place] 1, 2,3) (1) Alcohol dependence with uncomplicated withdrawal Current Visit: Yes Status: Acute Comment: . (2) Nicotine dependence Current Visit: Yes Status: Chronic Qualifiers: Nicotine product type: cigarettes Substance use status: in withdrawal Qualified Code(s): F17.213 - Nicotine dependence, cigarettes, with withdrawal Comment: . (3) Alcohol-induced sleep disorder Current Visit: Yes Status: Acute - Initial Treatment Plan Initial Treatment Plan: Psychoeducation provided. Detoxification in progress. Will order benadryl 25mg for insomnia as per patient's request. Benefits and side effects discussed. Verbal consent given.
[2018-12-05 10:32] LABS: HEMATOCRIT 36.9 % (35.4-49); HEMOGLOBIN 12.3 GM/dL (11.7-16.9); MCH 33.7 pg (25.7-33.7); MCHC 33.3 g/dl (32.0-35.9); MEAN CELL VOLUME 101.3 fl (80-96); MEAN PLT VOLUME 8.8 fl (7.5-11.1); PLATELET COUNT 69 K/MM3 (134-434); RBC 3.64 M/mm3 (4.00-5.60); RDW 15.1 % (11.9-15.9)
[2018-12-05 10:42] LABS: WHITE BLOOD COUNT 1.8 K/mm3 (4.0-10.0)
[2018-12-05 12:36] LABS: PH,URINE 6.5 (5.0-8.0); URINE APPEARANCE CLEAR; URINE BILIRUBIN NEGATIVE (NEGATIVE); URINE COLOR YELLOW; URINE GLUCOSE (UA) NEGATIVE (NEGATIVE); URINE KETONE NEGATIVE (NEGATIVE); URINE LEUK ESTERASE NEGATIVE (NEGATIVE); URINE NITRITE NEGATIVE (NEGATIVE); URINE PROTEIN NEGATIVE (NEGATIVE)
[2018-12-05] MEDS: THIAMINE HCL 100 MG TABLET (FP) PO SCH (22:09)
[2018-12-05] MEDS: diphenhydrAMINE HCL 25 MG CAPSULE (FP) PO PRN (22:10)
[2018-12-06] MEDS: chlordiazePOXIDE HCL 25 MG CAPSULE PO SCH ×2 (05:07→10:04)
[2018-12-06] MEDS: PREGABALIN 75 MG CAPSULE PO SCH ×3 (05:08→21:59)
[2018-12-06] MEDS: BICTEGRAV/EMTRICIT/TENOFOV (BIKTARVY) 50-200-25 MG TABLET PO SCH (07:00)
[2018-12-06] MEDS: PRENATAL VITAMINS W/ FOLIC ACID TABLET (FP) PO SCH (10:04)
[2018-12-06] MEDS: SULFAMETHOXAZOLE/TRIMETHOPRIM 800MG/160MG D.S. TABLET PO SCH (10:04)
[2018-12-06] MEDS: NICOTINE 14 MG/24 HOURS TOPICAL PATCH TD SCH (10:05)
[2018-12-06 10:07] LABS: HEMATOCRIT 39.7 % (35.4-49); HEMOGLOBIN 13.1 GM/dL (11.7-16.9); MCH 33.9 pg (25.7-33.7); MEAN CELL VOLUME 102.5 fl (80-96); MEAN PLT VOLUME 9.1 fl (7.5-11.1); PLATELET COUNT 69 K/MM3 (134-434); RBC 3.87 M/mm3 (4.00-5.60); WHITE BLOOD COUNT 2.4 K/mm3 (4.0-10.0)
[2018-12-06] MEDS: LIDOCAINE VISCOUS 2% ORAL/TOP 20 ML UNIT-DOSE CUP MM PRN ×2 (13:43→22:01)
[2018-12-06] MEDS ORDERED: valACYclovir HCL 1000 MG TABLET PO ONE (14:19)
--- NOTE | 2018-12-06 14:23 | PN ---
S CIWA - CIWA Score Nausea/Vomitin-No Nausea/No Vomiting Muscle Tremors: 2 Anxiety: 4-Mod. Anxious/Guarded Agitation: 1-Slight > Activity Paroxysmal Sweats: 2 Orientation: 0-Oriented Tacttile Disturbances: 3-Moderate Itch/Numb/Burn Auditory Disturbances: 0-None Visual Disturbances: 0-None Headache: 0-None Present CIWA-Ar Total Score: 12 BHS Progress Note (SOAP) Subjective: Tremors, Anxious, Sweating. Objective: PATIENT A & O X 3, OBSERVED AMBULATING ON UNIT UNASSISTED. IN NO ACUTE DISTRESS. 12/06/18 14:24 Vital Signs Temperature 96.5 F L 12/06/18 12:56 Pulse Rate 93 H 12/06/18 12:56 Respiratory Rate 18 12/06/18 12:56 Blood Pressure 122/77 12/06/18 12:56 O2 Sat by Pulse Oximetry (%) Laboratory Tests 12/04/18 12/05/18 12/05/18 10:00 07:00 07:00 WBC 1.8 L* RBC 3.64 L Hgb 12.3 Hct 36.9 MCV 101.3 H MCH 33.7 MCHC 33.3 RDW 15.1 Plt Count 69 L D MPV 8.8 D Sodium 138 Potassium 3.9 Chloride 103 Carbon Dioxide 30 Anion Gap 5 L BUN 12 Creatinine 0.9 Est GFR (CKD-EPI)AfAm 117.47 Est GFR (CKD-EPI)NonAf 101.35 Random Glucose 178 H Calcium 8.6 Total Bilirubin 0.9 AST 106 H ALT 81 H Alkaline Phosphatase 180 H Total Protein 6.9 Albumin 3.3 L Urine Color Yellow Urine Appearance Clear Urine pH 6.5 Ur Specific [place] 1.005 L Urine Protein Negative Urine Glucose (UA) Negative Urine Ketones Negative Urine Blood Negative Urine Nitrite Negative Urine Bilirubin Negative Urine Urobilinogen 1.0 Ur Leukocyte Esterase Negative RPR Titer 12/05/18 12/06/18 07:00 07:00 WBC 2.4 L RBC 3.87 L Hgb 13.1 Hct 39.7 MCV 102.5 H MCH 33.9 H MCHC 33.0 RDW 15.0 Plt Count 69 L MPV 9.1 Sodium Potassium Chloride Carbon Dioxide Anion Gap BUN Creatinine Est GFR (CKD-EPI)AfAm Est GFR (CKD-EPI)NonAf Random Glucose Calcium Total Bilirubin AST ALT Alkaline Phosphatase Total Protein Albumin Urine Color Urine Appearance Urine pH Ur Specific [place] Urine Protein Urine Glucose (UA) Urine Ketones Urine Blood Urine Nitrite Urine Bilirubin Urine Urobilinogen Ur Leukocyte Esterase RPR Titer Nonreactive LABS NOTED. RESULTS OF REPEAT CBC NOTED. MODERATE IMPROVEMENT NOTED IN WBC LEVEL. PLATELET LEVEL SAME FROM ADMISSION TO REPEAT CBC. PATIENT HAS HAD LOW WBC AND PLATELET LEVELS ON PREVIOUS ADMISSIONS. 12/06/18 14:36 Assessment: 12/06/18 14:24 WITHDRAWAL SYMPTOMS. LEUKOPENIA. THROMBOCYTOPENIA. ELEVATED LIVER ENZYMES. HYPERGLYCEMIA (ON ADMISSION). 12/06/18 16:00 Plan: CONTINUE DETOX. PATIENT REPORTS DISCOMFORT ON RIGHT SIDE OF TONGUE FOR LAST 2 DAYS. PATIENT DENIES HISTORY OF SIMILAR OCCURRENCE AND HE DENIES ANY KNOWN HISTORY OF ORAL INFECTION IN PAST. DUE TO CONCERNS OVER LOW PLATELET LEVEL NOTED ON ADMISSION AND ON REPEAT ASSESSMENT, VALACYCLOVIR / ACYCLOVIR NOT ORDERED AT THIS TIME. PRN VISCOUS LIDOCAINE SWISH 'N' SPIT MOUTHWASH ORDERED FOR ORAL PAIN. PATIENT ADVISED TO MONITOR TO SEE IF ANY IMPROVEMENT / CHANGE IN CONDITION OVER NEXT COUPLE OF DAYS. PATIENT VERBALIZED UNDERSTANDING OF RECOMMENDATION.
[2018-12-06] MEDS ORDERED: chlordiazePOXIDE HCL 10 MG CAPSULE PO PRN (17:00)
[2018-12-06] MEDS: chlordiazePOXIDE HCL 10 MG CAPSULE PO SCH ×2 (17:27→22:00)
[2018-12-06] MEDS: diphenhydrAMINE HCL 25 MG CAPSULE (FP) PO PRN (21:59)
[2018-12-06] MEDS: THIAMINE HCL 100 MG TABLET (FP) PO SCH (21:59)
[2018-12-06] MEDS ORDERED: valACYclovir HCL 1000 MG TABLET PO SCH (22:00)
[2018-12-07] MEDS: PREGABALIN 75 MG CAPSULE PO SCH ×3 (05:10→22:06)
[2018-12-07] MEDS: LIDOCAINE VISCOUS 2% ORAL/TOP 20 ML UNIT-DOSE CUP MM PRN ×2 (05:10→17:47)
[2018-12-07] MEDS: chlordiazePOXIDE HCL 10 MG CAPSULE PO SCH ×3 (05:10→17:56)
[2018-12-07] MEDS: PATIENT'S OWN MEDICATION (NON-FORMULARY) (Diclofenac Sodium [Voltaren] 100 GM) TP PRN (05:12)
[2018-12-07] MEDS: BICTEGRAV/EMTRICIT/TENOFOV (BIKTARVY) 50-200-25 MG TABLET PO SCH (07:48)
[2018-12-07] MEDS: ACETAMINOPHEN 325 MG TABLET (FP) PO PRN ×2 (10:18→22:07)
[2018-12-07] MEDS: SULFAMETHOXAZOLE/TRIMETHOPRIM 800MG/160MG D.S. TABLET PO SCH (10:19)
[2018-12-07] MEDS: NICOTINE 14 MG/24 HOURS TOPICAL PATCH TD SCH (10:19)
[2018-12-07] MEDS: PRENATAL VITAMINS W/ FOLIC ACID TABLET (FP) PO SCH (10:19)
--- NOTE | 2018-12-07 11:48 | PN ---
[facility] CIWA - CIWA Score Nausea/Vomitin-No Nausea/No Vomiting Muscle Tremors: 4-Moderate,w/Arms Extend Anxiety: 3 Agitation: 3 Paroxysmal Sweats: No Perspiration Orientation: 0-Oriented Tacttile Disturbances: 0-None Auditory Disturbances: 0-None Visual Disturbances: 0-None Headache: 0-None Present CIWA-Ar Total Score: 10 S Progress Note (SOAP) Subjective: ANXIETY, PAIN UNDER RIGHT TONGUE(SEE PREVIOUS NOTE). OOB AMBULATING AND REPORTS DETOX PROCEEDING WELL. Objective: 12/07/18 11:50 Vital Signs 12/07/18 12/07/18 06:02 09:11 Temperature 97.3 F L 97.2 F L Pulse Rate 77 92 H Respiratory 18 18 Rate Blood Pressure 109/68 114/74 Laboratory Tests 12/04/18 12/05/18 12/05/18 10:00 07:00 07:00 WBC 1.8 L* RBC 3.64 L Hgb 12.3 Hct 36.9 MCV 101.3 H MCH 33.7 MCHC 33.3 RDW 15.1 Plt Count 69 L D MPV 8.8 D Sodium 138 Potassium 3.9 Chloride 103 Carbon Dioxide 30 Anion Gap 5 L BUN 12 Creatinine 0.9 Est GFR (CKD-EPI)AfAm 117.47 Est GFR (CKD-EPI)NonAf 101.35 POC Glucometer Random Glucose 178 H Calcium 8.6 Total Bilirubin 0.9 AST 106 H ALT 81 H Alkaline Phosphatase 180 H Total Protein 6.9 Albumin 3.3 L Urine Color Yellow Urine Appearance Clear Urine pH 6.5 Ur Specific [place] 1.005 L Urine Protein Negative Urine Glucose (UA) Negative Urine Ketones Negative Urine Blood Negative Urine Nitrite Negative Urine Bilirubin Negative Urine Urobilinogen 1.0 Ur Leukocyte Esterase Negative RPR Titer 12/05/18 12/06/18 12/07/18 07:00 07:00 05:09 WBC 2.4 L RBC 3.87 L Hgb 13.1 Hct 39.7 MCV 102.5 H MCH 33.9 H MCHC 33.0 RDW 15.0 Plt Count 69 L MPV 9.1 Sodium Potassium Chloride Carbon Dioxide Anion Gap BUN Creatinine Est GFR (CKD-EPI)AfAm Est GFR (CKD-EPI)NonAf POC Glucometer 99 Random Glucose Calcium Total Bilirubin AST ALT Alkaline Phosphatase Total Protein Albumin Urine Color Urine Appearance Urine pH Ur Specific [place] Urine Protein Urine Glucose (UA) Urine Ketones Urine Blood Urine Nitrite Urine Bilirubin Urine Urobilinogen Ur Leukocyte Esterase RPR Titer Nonreactive LABS UNCHANGED EXCEPT GLC IMPROVED-99 MG/DL Assessment: 12/07/18 11:51 WITHDRAWAL SX Plan: CONTINUE DETOX/PRESENT CARE MOTRIN PRN
[2018-12-07] MEDS: THIAMINE HCL 100 MG TABLET (FP) PO SCH (22:06)
[2018-12-07] MEDS: diphenhydrAMINE HCL 25 MG CAPSULE (FP) PO PRN (22:10)
[2018-12-08] MEDS: LIDOCAINE VISCOUS 2% ORAL/TOP 20 ML UNIT-DOSE CUP MM PRN (05:08)
[2018-12-08] MEDS: ACETAMINOPHEN 325 MG TABLET (FP) PO PRN (05:08)
[2018-12-08] MEDS: chlordiazePOXIDE HCL 10 MG CAPSULE PO SCH (05:09)
[2018-12-08] MEDS: PREGABALIN 75 MG CAPSULE PO SCH (05:09)
[2018-12-08] MEDS: PATIENT'S OWN MEDICATION (NON-FORMULARY) (Diclofenac Sodium [Voltaren] 100 GM) TP PRN (05:12)
[2018-12-08] MEDS: BICTEGRAV/EMTRICIT/TENOFOV (BIKTARVY) 50-200-25 MG TABLET PO SCH (08:13)
[2018-12-08 09:08] VITALS: BP 122/73; PULSE 104; TEMP 95.9
[2018-12-08] MEDS: PRENATAL VITAMINS W/ FOLIC ACID TABLET (FP) PO SCH (09:24)
[2018-12-08] MEDS: SULFAMETHOXAZOLE/TRIMETHOPRIM 800MG/160MG D.S. TABLET PO SCH (09:24)
[2018-12-08] MEDS: NICOTINE 14 MG/24 HOURS TOPICAL PATCH TD SCH (09:25)
--- NOTE | 2018-12-08 09:57 | DS ---
[facility] Detox Discharge Summary Admission Date: 12/04/18 Discharge Date: 12/08/18 - History Present History: Alcohol Dependence Additional Comments: 48 years old male admitted on 12/04/18 for alcohol withdrawal stabilization completed alcohol detox regimen tolerated well [facility] - Physical Exam Results Vital Signs: Vital Signs Temperature 95.9 F L 12/08/18 09:07 Pulse Rate 104 H 12/08/18 09:07 Respiratory Rate 20 12/08/18 09:07 Blood Pressure 122/73 12/08/18 09:07 O2 Sat by Pulse Oximetry (%) Pertinent Admission Physical Exam Findings: alcohol withdrawal sx Laboratory Last Values WBC 2.4 K/mm3 (4.0-10.0) L 12/06/18 07:00 RBC 3.87 M/mm3 (4.00-5.60) L 12/06/18 07:00 Hgb 13.1 GM/dL (11.7-16.9) 12/06/18 07:00 Hct 39.7 % (35.4-49) 12/06/18 07:00 MCV 102.5 fl (80-96) H 12/06/18 07:00 MCH 33.9 pg (25.7-33.7) H 12/06/18 07:00 MCHC 33.0 g/dl (32.0-35.9) 12/06/18 07:00 RDW 15.0 % (11.9-15.9) 12/06/18 07:00 Plt Count 69 K/MM3 (134-434) L 12/06/18 07:00 MPV 9.1 fl (7.5-11.1) 12/06/18 07:00 Sodium 138 mmol/L (136-145) 12/05/18 07:00 Potassium 3.9 mmol/L (3.5-5.1) 12/05/18 07:00 Chloride 103 mmol/L (98-107) 12/05/18 07:00 Carbon Dioxide 30 mmol/L (21-32) 12/05/18 07:00 Anion Gap 5 MMOL/L (8-16) L 12/05/18 07:00 BUN 12 mg/dL (7-18) 12/05/18 07:00 Creatinine 0.9 mg/dL (0.55-1.3) 12/05/18 07:00 Est GFR (CKD-EPI)AfAm 117.47 12/05/18 07:00 Est GFR (CKD-EPI)NonAf 101.35 12/05/18 07:00 POC Glucometer 165 UNITS (80-120) 12/08/18 05:08 Random Glucose 178 mg/dL (74-106) H 12/05/18 07:00 Calcium 8.6 mg/dL (8.5-10.1) 12/05/18 07:00 Total Bilirubin 0.9 mg/dL (0.2-1) 12/05/18 07:00 AST 106 U/L (15-37) H 12/05/18 07:00 ALT 81 U/L (13-61) H 12/05/18 07:00 Alkaline Phosphatase 180 U/L (45-117) H 12/05/18 07:00 Total Protein 6.9 g/dl (6.4-8.2) 12/05/18 07:00 Albumin 3.3 g/dl (3.4-5.0) L 12/05/18 07:00 Urine Color Yellow 12/04/18 10:00 Urine Appearance Clear 12/04/18 10:00 Urine pH 6.5 (5.0-8.0) 12/04/18 10:00 Ur Specific [place] 1.005 (1.010-1.035) L 12/04/18 10:00 Urine Protein Negative (NEGATIVE) 12/04/18 10:00 Urine Glucose (UA) Negative (NEGATIVE) 12/04/18 10:00 Urine Ketones Negative (NEGATIVE) 12/04/18 10:00 Urine Blood Negative (NEGATIVE) 12/04/18 10:00 Urine Nitrite Negative (NEGATIVE) 12/04/18 10:00 Urine Bilirubin Negative (NEGATIVE) 12/04/18 10:00 Urine Urobilinogen 1.0 mg/dL (0.2-1.0) 12/04/18 10:00 Ur Leukocyte Esterase Negative (NEGATIVE) 12/04/18 10:00 RPR Titer Nonreactive (NONREACTIVE) 12/05/18 07:00 lab noted - Treatment Hospital Course: Detox Protocol Followed, Detoxed Safely, Responded well, Discharged Condition Good, Rehab Referral Accepted Patient has Accepted a Rehab Referral to: [facility] - Medication Discharge Medications: Ambulatory Orders Pregabalin [Lyrica -] 150 mg PO TID 03/30/18 Zolpidem Tartrate [Ambien] 10 mg PO HS PRN 03/30/18 Bictegrav/Emtricit/Tenofov Ala [Biktarvy 50-200-25 mg Tablet] 1 each PO DAILY Diclofenac Sodium [Voltaren] 100 gm TP BID PRN 12/04/18 Loratadine 10 mg PO DAILY 12/04/18 Sulfamethoxazole/Trimethoprim [Bactrim Ds -] 1 tab PO DAILY 12/04/18 - Diagnosis (1) Alcohol dependence with uncomplicated withdrawal Current Visit: Yes Status: Acute (2) Elevated liver enzymes Current Visit: Yes Status: Chronic (3) Thrombocytopenia Current Visit: Yes Status: Chronic (4) HIV (human immunodeficiency virus infection) Current Visit: Yes Status: Chronic Qualifiers: HIV symptom status: unspecified Qualified Code(s): B20 - Human immunodeficiency virus [HIV] disease (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
== END 2018-12-08 11:28 | disposition other institution (70) | DRG 775 ==
LOC: YASAS 11:55 → Y3N 17:34
PROVIDERS: ADMIT Surgery; ATTEND Surgery
PROC: HZ2ZZZZ Detoxification Services for Substance Abuse Treatment (ICD-10-PCS; principal; 2018-12-04)
DX: F10.230 Alcohol dependence with withdrawal, uncomplicated (principal); F17.213 Nicotine dependence, cigarettes, with withdrawal; F10.282 Alcohol dependence with alcohol-induced sleep disorder; F19.280 Other psychoactive substance dependence with psychoactive substance-induced anxiety disorder; Z21 Asymptomatic human immunodeficiency virus [HIV] infection status; G62.89 Other specified polyneuropathies; D69.6 Thrombocytopenia, unspecified; D72.819 Decreased white blood cell count, unspecified; R94.5 Abnormal results of liver function studies; R73.9 Hyperglycemia, unspecified
CPT/HCPCS: 36415; 80053; 81003; 82962; 85027; 86593

== ENCOUNTER 2018-12-08 11:36 | Inpatient (IN) | payer OTHER | END 2018-12-19 07:25 | disposition home or self-care (01) | LOC: YASAS 11:36 → Y3W 11:37 ==

== ENCOUNTER 2019-09-26 09:44 | Inpatient (IN) | payer OTHER ==
--- NOTE | 2019-09-26 10:57 | BHS.RME ---
Substance Use & Tx History - Substance Use History Alcohol Substance amount: 1-2 PINTS VODKA Frequency of use: Daily Substance route: Oral Date of Last Use: 09/26/19 (10:30 AM) Cocaine (Crack) Substance amount: $800 Frequency of use: Daily Substance route: Smoking Date of Last Use: 09/25/19 Nicotine Substance amount: 4-5 CIGGS Frequency of use: Daily Substance route: Smoking Date of Last Use: 09/26/19 CIWA Nausea/Vomitin Muscle Tremors: 3 Anxiety: 2 Agitation: 2 Paroxysmal Sweats: 1-Minimal Palms Moist Orientation: 1-Uncertain about Date Tacttile Disturbances: 0-None Auditory Disturbances: 0-None Visual Disturbances: 1-Very Mild Sensitivity Headache: 1-Very Mild CIWA-Ar Total Score: 13
[2019-09-26 11:28] VITALS: BMI 21.6
--- NOTE | 2019-09-26 12:01 | HP ---
CIWA Score Nausea/Vomitin Muscle Tremors: 3 Anxiety: 2 Agitation: 2 Paroxysmal Sweats: 1-Minimal Palms Moist Orientation: 1-Uncertain about Date Tacttile Disturbances: 0-None Auditory Disturbances: 0-None Visual Disturbances: 1-Very Mild Sensitivity Headache: 1-Very Mild CIWA-Ar Total Score: 13 - Admission Criteria OASAS Guidelines: Admission for Medically Managed Detox: Requires at least one of the followin. CIWA greater than 12 2. Seizures within the past 24 hours 3. Delirium tremens within the past 24 hours 4. Hallucinations within the past 24 hours 5. Acute intervention needed for co occurring medical disorder 6. Acute intervention needed for co occurring psychiatric disorder 7. Severe withdrawal that cannot be handled at a lower level of care (continued vomiting, continued diarrhea, abnormal vital signs) requiring intravenous medication and/or fluids 8. Admitting History and Physical - Admission Chief Complaint: " I need to get myself straight and give my body a break. Detox from crack and alcohol very badly" History of Present Illness: 48 year old male with history of alcohol dependence with withdrawal, crack use disorder and nicotine dependence. Alcohol: 1-2 pints vodka started drinking at the age of 13, last used 10:30AM today. Also 20-30 beer cans of 24 ounces daily. He does need an eye interventional physiatrist every day. Crack: $800 daily , deals crack, smokes it, first use at age 19 and last used 09/25/19 Nicotine: /4 PPD started smoking at age 13 PMH: HIV disease, Neuropathy Psurg: None Psych: Anxiety He needs inpatient detox due to his co-morbid disorder and poor recovery environment. He is at high risk of relapse as well. He is seeking detox and must follow through with rehab. History Source: Patient Limitations to Obtaining History: No Limitations - Past Medical History [employer] COLL[employer] BASTER: Yes: Peripheral Neuropathy Infectious Disease: Yes: HIV - Smoking History Smoking history: Current every day smoker Have you smoked in the past 12 months: Yes Aproximately how many cigarettes per day: 5 - Alcohol/Substance Use Hx Alcohol Use: Yes - Social History Usual Living Arrangement: Yes: Alone Do you think of yourself as: Bisexual ADL: Independent Occupation: SSI due to HIV, [employer] History of Recent Travel: No Admission ROS [facility] - [facility] Allergies/Adverse Reactions: Allergies Allergy/AdvReac Type Severity Reaction Status Date / Time No Known Allergies Allergy Verified 09/26/19 11:21 Patient History - Patient Medical History Hx Anemia: No Hx Asthma: No Hx Chronic Obstructive Pulmonary Disease (COPD): No Hx Cancer: No Hx Cardiac Disorders: No Hx Congestive Heart Failure: No Hx Hypertension: No Hx Hypercholesterolemia: No Hx Pacemaker: No HX Cerebrovascular Accident: No Hx Seizures: No Hx Dementia: No Hx Diabetes: No Hx Gastrointestinal Disorders: No Hx Liver Disease: No Hx Genitourinary Disorders: No Hx Sexually Transmitted Disorders: Yes Hx Renal Disease (ESRD): No Hx Thyroid Disease: No Hx Human Immunodeficiency Virus (HIV): Yes Hx Hepatitis C: Yes (treated,) Hx Depression: No Hx Suicide Attempt: No Hx Bipolar Disorder: No Hx Schizophrenia: No - Patient Surgical History Past Surgical History: No Hx Neurologic Surgery: No Hx Cataract Extraction: No Hx Cardiac Surgery: No Hx Lung Surgery: No Hx Breast Surgery: No Hx Breast Biopsy: No Hx Abdominal Surgery: No Hx Appendectomy: No Hx Cholecystectomy: No Hx Genitourinary Surgery: No Hx Section: No Hx Orthopedic Surgery: No Other Surgical History: hemorrhoid surgery 2009 Anesthesia Reaction: No - PPD History Previous Implant?: No Documented Results: Negative w/proof Implanted On Prior R Admission?: Yes Date: 04/01/18 Results: 0 mm - Smoking Cessation Smoking history: Current every day smoker Have you smoked in the past 12 months: Yes Aproximately how many cigarettes per day: 5 Cigars Per Day: 0 Hx Chewing Tobacco Use: No Initiated information on smoking cessation: Yes 'Breaking Loose' booklet given: 09/26/19 - Substances abused Alcohol Substance route: Oral Frequency: Daily Amount used: 20 beers Age of first use: 18 Date of last use: 09/26/19 Crack Substance route: Smoking Amount used: $800 Age of first use: 18 Date of last use: 09/25/19 Admission Physical Exam BHS - Vital Signs Vital Signs: Vital Signs - 24 hr 09/26/19 11:23 Temperature 96.9 F L Pulse Rate 98 H Respiratory 18 Rate Blood Pressure 144/96 - Physical General Appearance: Yes: No Apparent Distress, Nourished, Appropriately Dressed HEENTM: Yes: EOMI, Hearing grossly Normal, Normal ENT Inspection, Normocephalic, Normal Voice, BRIDGET, Pharynx Normal, Tm's normal Respiratory: Yes: Chest Non-Tender, Lungs Clear, Normal Breath Sounds, No Respiratory Distress, No Accessory Muscle Use Neck: Yes: No masses,lesions,Nodules, Supple, Trachea in good position Breast: Yes: Within Normal Limits Cardiology: Yes: Regular Rhythm, Regular Rate, S1, S2 Abdominal: Yes: Normal Bowel Sounds, Non Tender, Flat, Soft Genitourinary: Yes: Within Normal Limits Back: Yes: Normal Inspection Musculoskeletal: Yes: full range of Motion, Gait Steady, Pelvis Stable Extremities: Yes: Normal Capillary Refill, Normal Inspection, Normal Range of Motion, Non-Tender, Other (some scars arms. varicose veins right leg) Neurological: Yes: multi disciplined language analyst II-XII NML intact, Fully Oriented, Alert, Motor Strength 5/5, Normal Mood/Affect, Normal Response Integumentary: Yes: Normal Color, Warm Lymphatic: Yes: Within Normal Limits - Diagnostic (1) Alcohol dependence with uncomplicated withdrawal Current Visit: Yes Status: Acute Comment: . 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 (6) Thrombocytopenia Current Visit: Yes Status: Chronic (7) Hepatitis C Current Visit: No Status: Resolved Cleared for Admission [facility] - Detox or Rehab [facility] Level of Care: Medically Managed Detox Regimen/Protocol: Librium Claeared for Rehab Admission: No Screened but not Admitted - Documentation of Visit Screened but not Admitted: No Breathalyzer - Breathalyzer Breathalyzer: 0.220 Urine Drug Screen - Test Device Lot number: [id number] Expiration date: 06/21/21 - Control Is test valid?: Yes - Results Drug screen NEGATIVE: No Urine drug screen results: SAIRA-Cocaine Inpatient Rehab Admission - Rehab Decision to Admit Inpatient rehab admission?: No
[2019-09-26] MEDS ORDERED: ACETAMINOPHEN 325 MG TABLET (FP) PO PRN ×2 (12:04)
[2019-09-26] MEDS ORDERED: BISMUTH SUBSALICYLATE 524 MG/30 ML UD PO PRN (12:04)
[2019-09-26] MEDS ORDERED: METHOCARBAMOL 500 MG TABLET PO PRN (12:04)
[2019-09-26] MEDS ORDERED: MAGNESIUM HYDROX 2400MG/30ML ORAL SUSPENSION 30 ML CUP PO PRN (12:04)
[2019-09-26] MEDS ORDERED: MAGNESIUM CITRATE 300 ML BOTTLE PO PRN (12:04)
[2019-09-26] MEDS ORDERED: NICOTINE POLACRILEX 2 MG GUM BUC PRN (12:04)
[2019-09-26] MEDS ORDERED: MAG HYDROX/AL HYDROX/SIMETH 30 ML UNIT-DOSE CUP PO PRN (12:04)
[2019-09-26] MEDS ORDERED: IBUPROFEN 400 MG TABLET (FP) PO PRN (12:04)
[2019-09-26] MEDS ORDERED: chlordiazePOXIDE HCL 25 MG CAPSULE PO PRN (12:04)
[2019-09-26] MEDS ORDERED: ONDANSETRON *ODT* 4 MG TABLET SL ONE (13:00)
[2019-09-26] MEDS: hydrOXYzine PAMOATE 25 MG CAPSULE (FP) PO SCH ×3 (14:00→23:06)
[2019-09-26] MEDS: NICOTINE 7 MG/24 HOURS TOPICAL PATCH TD SCH (14:01)
[2019-09-26] MEDS: PRENATAL VITAMINS W/ FOLIC ACID TABLET (FP) PO SCH (14:01)
[2019-09-26] MEDS: PREGABALIN 75 MG CAPSULE PO SCH ×2 (15:29→22:08)
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
[2019-09-26] MEDS: chlordiazePOXIDE HCL 25 MG CAPSULE PO SCH ×2 (18:33→22:08)
[2019-09-26 18:46] LABS: HEMATOCRIT 44.5 % (35.4-49); HEMOGLOBIN 15.4 GM/dL (11.7-16.9); MCH 33.5 pg (25.7-33.7); MCHC 34.5 g/dl (32.0-35.9); MEAN CELL VOLUME 97.1 fl (80-96); MEAN PLT VOLUME 8.4 fl (7.5-11.1); PLATELET COUNT 182 K/MM3 (134-434); RBC 4.58 M/mm3 (4.00-5.60); RDW 13.3 % (11.9-15.9); WHITE BLOOD COUNT 4.1 K/mm3 (4.0-10.0)
[2019-09-26 18:50] LABS: ALBUMIN 3.9 g/dl (3.4-5.0); BILIRUBIN,TOTAL 0.5 mg/dL (0.2-1); BLOOD UREA NITROGEN 8.4 mg/dL (7-18); CALCIUM 8.6 mg/dL (8.5-10.1); CREATININE 1.2 mg/dL (0.55-1.3); POTASSIUM 4.1 mmol/L (3.5-5.1); TOT PROT 9.9 g/dl (6.4-8.2)
[2019-09-26] MEDS: MELATONIN 5 MG TABLETS PO SCH (22:08)
[2019-09-26] MEDS: THIAMINE HCL 100 MG TABLET (FP) PO SCH (22:08)
[2019-09-27] MEDS: PREGABALIN 75 MG CAPSULE PO SCH ×3 (05:26→22:29)
[2019-09-27] MEDS: chlordiazePOXIDE HCL 25 MG CAPSULE PO SCH ×4 (05:26→22:29)
[2019-09-27] MEDS: hydrOXYzine PAMOATE 25 MG CAPSULE (FP) PO SCH ×5 (05:27→22:29)
[2019-09-27] MEDS: BICTEGRAV/EMTRICIT/TENOFOV (BIKTARVY) 50-200-25 MG TABLET PO SCH (06:08)
[2019-09-27] MEDS: NICOTINE 7 MG/24 HOURS TOPICAL PATCH TD SCH (10:09)
[2019-09-27] MEDS: PRENATAL VITAMINS W/ FOLIC ACID TABLET (FP) PO SCH (10:09)
--- NOTE | 2019-09-27 10:37 | PN ---
[facility] CIWA - CIWA Score Nausea/Vomitin-No Nausea/No Vomiting Muscle Tremors: 2 Anxiety: 3 Agitation: 0-Normal Activity Paroxysmal Sweats: 3 Orientation: 0-Oriented Tacttile Disturbances: 1-Very Mild Itch/Numbness Auditory Disturbances: 0-None Visual Disturbances: 0-None Headache: 2-Mild CIWA-Ar Total Score: 11 S Progress Note (SOAP) Subjective: c/o sweats, anxiety, headache, and right hand itchiness. Objective: 09/27/19 10:34 Vital Signs 09/27/19 09/27/19 09/27/19 03:30 06:20 06:30 Temperature 96.2 F L Pulse Rate 69 Respiratory 18 18 16 Rate Blood Pressure 114/73 09/27/19 08:37 Temperature 96.8 F L Pulse Rate 65 Respiratory 18 Rate Blood Pressure 118/78 Laboratory Last Values WBC 4.1 K/mm3 (4.0-10.0) 09/26/19 12:40 RBC 4.58 M/mm3 (4.00-5.60) 09/26/19 12:40 Hgb 15.4 GM/dL (11.7-16.9) 09/26/19 12:40 Hct 44.5 % (35.4-49) 09/26/19 12:40 MCV 97.1 fl (80-96) H 09/26/19 12:40 MCH 33.5 pg (25.7-33.7) 09/26/19 12:40 MCHC 34.5 g/dl (32.0-35.9) 09/26/19 12:40 RDW 13.3 % (11.9-15.9) D 09/26/19 12:40 Plt Count 182 K/MM3 (134-434) D 09/26/19 12:40 MPV 8.4 fl (7.5-11.1) 09/26/19 12:40 Sodium 142 mmol/L (136-145) 09/26/19 12:40 Potassium 4.1 mmol/L (3.5-5.1) 09/26/19 12:40 Chloride 108 mmol/L (98-107) H 09/26/19 12:40 Carbon Dioxide 27 mmol/L (21-32) 09/26/19 12:40 Anion Gap 7 MMOL/L (8-16) L 09/26/19 12:40 BUN 8.4 mg/dL (7-18) 09/26/19 12:40 Creatinine 1.2 mg/dL (0.55-1.3) 09/26/19 12:40 Est GFR (CKD-EPI)AfAm 82.96 09/26/19 12:40 Est GFR (CKD-EPI)NonAf 71.58 09/26/19 12:40 Random Glucose 95 mg/dL (74-106) 09/26/19 12:40 Calcium 8.6 mg/dL (8.5-10.1) 09/26/19 12:40 Total Bilirubin 0.5 mg/dL (0.2-1) 09/26/19 12:40 AST 116 U/L (15-37) H 09/26/19 12:40 ALT 104 U/L (13-61) H 09/26/19 12:40 Alkaline Phosphatase 157 U/L (45-117) H 09/26/19 12:40 Total Protein 9.9 g/dl (6.4-8.2) H 09/26/19 12:40 Albumin 3.9 g/dl (3.4-5.0) 09/26/19 12:40 Labs noted. Assessment: 09/27/19 10:34 AOX3, in no acute respiratory distress. Full ROM, ambulating in the unit. Withdrawal symptoms. Right hand rash, pt states from spider bites at home. Plan: continue detox. Hydrocortisone cream 1% bid apply to affected area. Increase fluids.
[2019-09-27] MEDS: HYDROCORTISONE 1% TOPICAL CREAM 30 GM TUBE TP SCH ×2 (11:13→22:28)
[2019-09-27] MEDS: THIAMINE HCL 100 MG TABLET (FP) PO SCH (22:29)
[2019-09-27] MEDS: MELATONIN 5 MG TABLETS PO SCH (22:29)
[2019-09-27] MEDS: SUVOREXANT 10 MG TABLET PO PRN (22:30)
[2019-09-28] MEDS: hydrOXYzine PAMOATE 25 MG CAPSULE (FP) PO SCH ×5 (05:27→22:20)
[2019-09-28] MEDS: chlordiazePOXIDE HCL 25 MG CAPSULE PO SCH ×2 (05:29→10:24)
[2019-09-28] MEDS: PREGABALIN 75 MG CAPSULE PO SCH ×3 (05:30→22:21)
[2019-09-28] MEDS: BICTEGRAV/EMTRICIT/TENOFOV (BIKTARVY) 50-200-25 MG TABLET PO SCH (06:03)
[2019-09-28] MEDS: PRENATAL VITAMINS W/ FOLIC ACID TABLET (FP) PO SCH (10:24)
[2019-09-28] MEDS: HYDROCORTISONE 1% TOPICAL CREAM 30 GM TUBE TP SCH ×2 (10:25→22:20)
[2019-09-28] MEDS: NICOTINE 7 MG/24 HOURS TOPICAL PATCH TD SCH (10:25)
--- NOTE | 2019-09-28 11:40 | PN ---
[facility] CIWA - CIWA Score Nausea/Vomitin-Mild Nausea/No Vomiting Muscle Tremors: 3 Anxiety: 3 Agitation: 0-Normal Activity Paroxysmal Sweats: 2 Orientation: 0-Oriented Tacttile Disturbances: 0-None Auditory Disturbances: 0-None Visual Disturbances: 1-Very Mild Sensitivity Headache: 0-None Present CIWA-Ar Total Score: 10 S Progress Note (SOAP) Subjective: 48 years old male admitted on 09/26/19 for alcohol withdrawal sx management treating with librium detox regiment feeling ok today ambulating on hallway social with peers in day room medical history of hiv hepatitis c and neuropathy Objective: 09/28/19 11:43 Vital Signs Temperature 97.8 F 09/28/19 08:42 Pulse Rate 93 H 09/28/19 08:42 Respiratory Rate 20 09/28/19 08:42 Blood Pressure 104/68 09/28/19 08:42 O2 Sat by Pulse Oximetry (%) Laboratory Last Values WBC 4.1 K/mm3 (4.0-10.0) 09/26/19 12:40 RBC 4.58 M/mm3 (4.00-5.60) 09/26/19 12:40 Hgb 15.4 GM/dL (11.7-16.9) 09/26/19 12:40 Hct 44.5 % (35.4-49) 09/26/19 12:40 MCV 97.1 fl (80-96) H 09/26/19 12:40 MCH 33.5 pg (25.7-33.7) 09/26/19 12:40 MCHC 34.5 g/dl (32.0-35.9) 09/26/19 12:40 RDW 13.3 % (11.9-15.9) D 09/26/19 12:40 Plt Count 182 K/MM3 (134-434) D 09/26/19 12:40 MPV 8.4 fl (7.5-11.1) 09/26/19 12:40 Sodium 142 mmol/L (136-145) 09/26/19 12:40 Potassium 4.1 mmol/L (3.5-5.1) 09/26/19 12:40 Chloride 108 mmol/L (98-107) H 09/26/19 12:40 Carbon Dioxide 27 mmol/L (21-32) 09/26/19 12:40 Anion Gap 7 MMOL/L (8-16) L 09/26/19 12:40 BUN 8.4 mg/dL (7-18) 09/26/19 12:40 Creatinine 1.2 mg/dL (0.55-1.3) 09/26/19 12:40 Est GFR (CKD-EPI)AfAm 82.96 09/26/19 12:40 Est GFR (CKD-EPI)NonAf 71.58 09/26/19 12:40 Random Glucose 95 mg/dL (74-106) 09/26/19 12:40 Calcium 8.6 mg/dL (8.5-10.1) 09/26/19 12:40 Total Bilirubin 0.5 mg/dL (0.2-1) 09/26/19 12:40 AST 116 U/L (15-37) H 09/26/19 12:40 ALT 104 U/L (13-61) H 09/26/19 12:40 Alkaline Phosphatase 157 U/L (45-117) H 09/26/19 12:40 Total Protein 9.9 g/dl (6.4-8.2) H 09/26/19 12:40 Albumin 3.9 g/dl (3.4-5.0) 09/26/19 12:40 RPR Titer Nonreactive (NONREACTIVE) 09/26/19 12:40 lab noted ast elevation discontinue tylenal discontinue librium begin ativan regiment 09/28/19 11:49 Assessment: 09/28/19 11:49 alcohol withdrawal Plan: ativan regiment
[2019-09-28] MEDS ORDERED: LORazepam 1 MG TABLET PO PRN (11:45)
[2019-09-28] MEDS: MENTHOL/PHENOL 1 EACH UD MM PRN (13:27)
[2019-09-28] MEDS: LORazepam 2 MG TABLET PO SCH ×2 (18:05→22:20)
[2019-09-28] MEDS: SUVOREXANT 10 MG TABLET PO PRN (22:20)
[2019-09-28] MEDS: MELATONIN 5 MG TABLETS PO SCH (22:21)
[2019-09-28] MEDS: THIAMINE HCL 100 MG TABLET (FP) PO SCH (22:21)
[2019-09-29] MEDS ORDERED: chlordiazePOXIDE HCL 10 MG CAPSULE PO PRN
[2019-09-29] MEDS ORDERED: chlordiazePOXIDE HCL 10 MG CAPSULE PO SCH (05:00)
[2019-09-29] MEDS: PREGABALIN 75 MG CAPSULE PO SCH ×3 (06:24→22:07)
[2019-09-29] MEDS: LORazepam 1 MG TABLET PO SCH ×4 (06:24→22:07)
[2019-09-29] MEDS: hydrOXYzine PAMOATE 25 MG CAPSULE (FP) PO SCH ×5 (06:24→22:07)
[2019-09-29] MEDS: BICTEGRAV/EMTRICIT/TENOFOV (BIKTARVY) 50-200-25 MG TABLET PO SCH (07:31)
[2019-09-29] MEDS: NICOTINE 7 MG/24 HOURS TOPICAL PATCH TD SCH (10:10)
[2019-09-29] MEDS: PRENATAL VITAMINS W/ FOLIC ACID TABLET (FP) PO SCH (10:10)
[2019-09-29] MEDS: HYDROCORTISONE 1% TOPICAL CREAM 30 GM TUBE TP SCH ×2 (10:11→22:07)
[2019-09-29] MEDS: MENTHOL/PHENOL 1 EACH UD MM PRN (10:12)
--- NOTE | 2019-09-29 14:47 | PN ---
S CIWA - CIWA Score Nausea/Vomitin-No Nausea/No Vomiting Muscle Tremors: 2 Anxiety: 3 Agitation: 1-Slight > Activity Paroxysmal Sweats: 2 Orientation: 0-Oriented Tacttile Disturbances: 0-None Auditory Disturbances: 0-None Visual Disturbances: 0-None Headache: 0-None Present CIWA-Ar Total Score: 8 BHS Progress Note (SOAP) Subjective: 48 years old male admitted on 09/26/19 for alcohol withdrawal sx management treating with ativan detox regiment reports trouble sleeping at night belsomra 10 mg po x 1 Objective: 09/29/19 14:48 Vital Signs Temperature 98.5 F 09/29/19 12:36 Pulse Rate 74 09/29/19 12:36 Respiratory Rate 18 09/29/19 12:36 Blood Pressure 110/63 09/29/19 12:36 O2 Sat by Pulse Oximetry (%) Laboratory Last Values WBC 4.1 K/mm3 (4.0-10.0) 09/26/19 12:40 RBC 4.58 M/mm3 (4.00-5.60) 09/26/19 12:40 Hgb 15.4 GM/dL (11.7-16.9) 09/26/19 12:40 Hct 44.5 % (35.4-49) 09/26/19 12:40 MCV 97.1 fl (80-96) H 09/26/19 12:40 MCH 33.5 pg (25.7-33.7) 09/26/19 12:40 MCHC 34.5 g/dl (32.0-35.9) 09/26/19 12:40 RDW 13.3 % (11.9-15.9) D 09/26/19 12:40 Plt Count 182 K/MM3 (134-434) D 09/26/19 12:40 MPV 8.4 fl (7.5-11.1) 09/26/19 12:40 Sodium 142 mmol/L (136-145) 09/26/19 12:40 Potassium 4.1 mmol/L (3.5-5.1) 09/26/19 12:40 Chloride 108 mmol/L (98-107) H 09/26/19 12:40 Carbon Dioxide 27 mmol/L (21-32) 09/26/19 12:40 Anion Gap 7 MMOL/L (8-16) L 09/26/19 12:40 BUN 8.4 mg/dL (7-18) 09/26/19 12:40 Creatinine 1.2 mg/dL (0.55-1.3) 09/26/19 12:40 Est GFR (CKD-EPI)AfAm 82.96 09/26/19 12:40 Est GFR (CKD-EPI)NonAf 71.58 09/26/19 12:40 Random Glucose 95 mg/dL (74-106) 09/26/19 12:40 Calcium 8.6 mg/dL (8.5-10.1) 09/26/19 12:40 Total Bilirubin 0.5 mg/dL (0.2-1) 09/26/19 12:40 AST 116 U/L (15-37) H 09/26/19 12:40 ALT 104 U/L (13-61) H 09/26/19 12:40 Alkaline Phosphatase 157 U/L (45-117) H 09/26/19 12:40 Total Protein 9.9 g/dl (6.4-8.2) H 09/26/19 12:40 Albumin 3.9 g/dl (3.4-5.0) 09/26/19 12:40 RPR Titer Nonreactive (NONREACTIVE) 09/26/19 12:40 lab noted Assessment: alcohol withdrawal Plan: ativan regiment
[2019-09-29] MEDS ORDERED: SUVOREXANT 10 MG TABLET PO ONE (22:00)
[2019-09-29] MEDS: MELATONIN 5 MG TABLETS PO SCH (22:07)
[2019-09-29] MEDS: THIAMINE HCL 100 MG TABLET (FP) PO SCH (22:07)
[2019-09-30] MEDS ORDERED: LORazepam 0.5 MG TABLET PO PRN
[2019-09-30] MEDS ORDERED: chlordiazePOXIDE HCL 10 MG CAPSULE PO SCH (05:00)
[2019-09-30] MEDS: PREGABALIN 75 MG CAPSULE PO SCH ×3 (05:48→22:29)
[2019-09-30] MEDS: hydrOXYzine PAMOATE 25 MG CAPSULE (FP) PO SCH ×5 (05:48→22:30)
[2019-09-30] MEDS: MENTHOL/PHENOL 1 EACH UD MM PRN (05:50)
[2019-09-30] MEDS: LORazepam 0.5 MG TABLET PO SCH ×4 (06:49→22:29)
[2019-09-30] MEDS: BICTEGRAV/EMTRICIT/TENOFOV (BIKTARVY) 50-200-25 MG TABLET PO SCH (06:49)
[2019-09-30] MEDS: PRENATAL VITAMINS W/ FOLIC ACID TABLET (FP) PO SCH (10:14)
[2019-09-30] MEDS: HYDROCORTISONE 1% TOPICAL CREAM 30 GM TUBE TP SCH ×2 (10:15→22:31)
[2019-09-30] MEDS: NICOTINE 7 MG/24 HOURS TOPICAL PATCH TD SCH (10:16)
--- NOTE | 2019-09-30 12:50 | PN ---
S CIWA - CIWA Score Nausea/Vomitin-No Nausea/No Vomiting Muscle Tremors: 2 Anxiety: 2 Agitation: 0-Normal Activity Paroxysmal Sweats: 2 Orientation: 0-Oriented Tacttile Disturbances: 0-None Auditory Disturbances: 0-None Visual Disturbances: 0-None Headache: 0-None Present CIWA-Ar Total Score: 6 BHS Progress Note (SOAP) Subjective: 48 years old male admitted on 09/26/19 for alcohol withdrawal sx management treating with ativan detox regiment feeling better today seen by psychiatrist al bravo for insomnia less tremor encourage the patient to attend behavior modification groups Objective: 09/30/19 12:51 Vital Signs Temperature 99.6 F 09/30/19 08:50 Pulse Rate 90 09/30/19 08:50 Respiratory Rate 18 09/30/19 08:50 Blood Pressure 114/69 09/30/19 08:50 O2 Sat by Pulse Oximetry (%) Laboratory Last Values WBC 4.1 K/mm3 (4.0-10.0) 09/26/19 12:40 RBC 4.58 M/mm3 (4.00-5.60) 09/26/19 12:40 Hgb 15.4 GM/dL (11.7-16.9) 09/26/19 12:40 Hct 44.5 % (35.4-49) 09/26/19 12:40 MCV 97.1 fl (80-96) H 09/26/19 12:40 MCH 33.5 pg (25.7-33.7) 09/26/19 12:40 MCHC 34.5 g/dl (32.0-35.9) 09/26/19 12:40 RDW 13.3 % (11.9-15.9) D 09/26/19 12:40 Plt Count 182 K/MM3 (134-434) D 09/26/19 12:40 MPV 8.4 fl (7.5-11.1) 09/26/19 12:40 Sodium 142 mmol/L (136-145) 09/26/19 12:40 Potassium 4.1 mmol/L (3.5-5.1) 09/26/19 12:40 Chloride 108 mmol/L (98-107) H 09/26/19 12:40 Carbon Dioxide 27 mmol/L (21-32) 09/26/19 12:40 Anion Gap 7 MMOL/L (8-16) L 09/26/19 12:40 BUN 8.4 mg/dL (7-18) 09/26/19 12:40 Creatinine 1.2 mg/dL (0.55-1.3) 09/26/19 12:40 Est GFR (CKD-EPI)AfAm 82.96 09/26/19 12:40 Est GFR (CKD-EPI)NonAf 71.58 09/26/19 12:40 Random Glucose 95 mg/dL (74-106) 09/26/19 12:40 Calcium 8.6 mg/dL (8.5-10.1) 09/26/19 12:40 Total Bilirubin 0.5 mg/dL (0.2-1) 09/26/19 12:40 AST 116 U/L (15-37) H 09/26/19 12:40 ALT 104 U/L (13-61) H 09/26/19 12:40 Alkaline Phosphatase 157 U/L (45-117) H 09/26/19 12:40 Total Protein 9.9 g/dl (6.4-8.2) H 09/26/19 12:40 Albumin 3.9 g/dl (3.4-5.0) 09/26/19 12:40 RPR Titer Nonreactive (NONREACTIVE) 09/26/19 12:40 lab noted alcohol induced ast elevation Assessment: 09/30/19 12:51 alcohol withdrawal Plan: ativan regiment
[2019-09-30] MEDS: THIAMINE HCL 100 MG TABLET (FP) PO SCH (22:29)
[2019-09-30] MEDS: MELATONIN 5 MG TABLETS PO SCH (22:30)
[2019-10-01] MEDS ORDERED: chlordiazePOXIDE HCL 10 MG CAPSULE PO ONE (05:00)
[2019-10-01] MEDS ORDERED: LORazepam 0.5 MG TABLET PO ONE (05:00)
[2019-10-01] MEDS: PREGABALIN 75 MG CAPSULE PO SCH (05:08)
[2019-10-01] MEDS: hydrOXYzine PAMOATE 25 MG CAPSULE (FP) PO SCH ×2 (05:09→10:24)
[2019-10-01 06:42] VITALS: BP 117/75; PULSE 72; TEMP 97.5
[2019-10-01] MEDS: BICTEGRAV/EMTRICIT/TENOFOV (BIKTARVY) 50-200-25 MG TABLET PO SCH (07:19)
[2019-10-01] MEDS: HYDROCORTISONE 1% TOPICAL CREAM 30 GM TUBE TP SCH (10:23)
[2019-10-01] MEDS: NICOTINE 7 MG/24 HOURS TOPICAL PATCH TD SCH (10:23)
[2019-10-01] MEDS: PRENATAL VITAMINS W/ FOLIC ACID TABLET (FP) PO SCH (10:24)
--- NOTE | 2019-10-01 11:11 | DS ---
[facility] Detox Discharge Summary Admission Date: 09/26/19 Discharge Date: 10/01/19 - History Present History: Alcohol Dependence Additional Comments: 48 years old male admitted on 09/26/19 for alcohol withdrawal sx management treated with ativan detox regiment Mr Cuba has completed ativan detox regiment and is tolerated well seen by psychiatrist romeo bravo alert oriented x 3 respiratory clear lungs sound bilaterally on auscultation abdomen soft no rebound tenderness extremities full range of motion Pertinent Past History: time for discharge 46 minutes - Physical Exam Results Vital Signs: Vital Signs Temperature 97.5 F L 10/01/19 06:41 Pulse Rate 72 10/01/19 06:41 Respiratory Rate 18 10/01/19 06:41 Blood Pressure 117/75 10/01/19 06:41 O2 Sat by Pulse Oximetry (%) Pertinent Admission Physical Exam Findings: alcohol withdrawal Vital Signs Temperature 97.5 F L 10/01/19 06:41 Pulse Rate 72 10/01/19 06:41 Respiratory Rate 18 10/01/19 06:41 Blood Pressure 117/75 10/01/19 06:41 O2 Sat by Pulse Oximetry (%) Laboratory Last Values WBC 4.1 K/mm3 (4.0-10.0) 09/26/19 12:40 RBC 4.58 M/mm3 (4.00-5.60) 09/26/19 12:40 Hgb 15.4 GM/dL (11.7-16.9) 09/26/19 12:40 Hct 44.5 % (35.4-49) 09/26/19 12:40 MCV 97.1 fl (80-96) H 09/26/19 12:40 MCH 33.5 pg (25.7-33.7) 09/26/19 12:40 MCHC 34.5 g/dl (32.0-35.9) 09/26/19 12:40 RDW 13.3 % (11.9-15.9) D 09/26/19 12:40 Plt Count 182 K/MM3 (134-434) D 09/26/19 12:40 MPV 8.4 fl (7.5-11.1) 09/26/19 12:40 Sodium 142 mmol/L (136-145) 09/26/19 12:40 Potassium 4.1 mmol/L (3.5-5.1) 09/26/19 12:40 Chloride 108 mmol/L (98-107) H 09/26/19 12:40 Carbon Dioxide 27 mmol/L (21-32) 09/26/19 12:40 Anion Gap 7 MMOL/L (8-16) L 09/26/19 12:40 BUN 8.4 mg/dL (7-18) 09/26/19 12:40 Creatinine 1.2 mg/dL (0.55-1.3) 09/26/19 12:40 Est GFR (CKD-EPI)AfAm 82.96 09/26/19 12:40 Est GFR (CKD-EPI)NonAf 71.58 09/26/19 12:40 Random Glucose 95 mg/dL (74-106) 09/26/19 12:40 Calcium 8.6 mg/dL (8.5-10.1) 09/26/19 12:40 Total Bilirubin 0.5 mg/dL (0.2-1) 09/26/19 12:40 AST 116 U/L (15-37) H 09/26/19 12:40 ALT 104 U/L (13-61) H 09/26/19 12:40 Alkaline Phosphatase 157 U/L (45-117) H 09/26/19 12:40 Total Protein 9.9 g/dl (6.4-8.2) H 09/26/19 12:40 Albumin 3.9 g/dl (3.4-5.0) 09/26/19 12:40 RPR Titer Nonreactive (NONREACTIVE) 09/26/19 12:40 T.pallidum Ab Interpret Cancelled 09/26/19 12:40 lab noted - Treatment Hospital Course: Detox Protocol Followed, Detoxed Safely, Responded well, Discharged Condition Good, Rehab Referral Accepted Patient has Accepted [facility] Referral [facility]: [facility] - Medication Discharge Medications: Ambulatory Orders Pregabalin [Lyrica -] 150 mg PO TID 03/30/18 Zolpidem Tartrate [Ambien] 10 mg PO HS PRN 03/30/18 Bictegrav/Emtricit/Tenofov Ala [Biktarvy 50-200-25 mg Tablet] 1 each PO DAILY 12/04/18 - Diagnosis (1) Alcohol dependence with uncomplicated withdrawal Current Visit: Yes Status: Acute (2) HIV (human immunodeficiency virus infection) Current Visit: Yes Status: Chronic Qualifiers: HIV symptom status: asymptomatic Qualified Code(s): Z21 - Asymptomatic human immunodeficiency virus [HIV] infection status (3) 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 Current Visit: Yes Status: Chronic (4) Nicotine dependence Current Visit: Yes Status: Acute Qualifiers: Nicotine product type: cigarettes Substance use status: in withdrawal Qualified Code(s): F17.213 - Nicotine dependence, cigarettes, with withdrawal (5) Substance induced mood disorder Current Visit: Yes Status: Suspected (6) Elevated liver enzymes Current Visit: Yes Status: Chronic (7) Hepatitis C Current Visit: Yes Status: Chronic Qualifiers: Viral hepatitis chronicity: carrier Qualified Code(s): B18.2 - Chronic viral hepatitis C - AMA Did Patient Leave Against Medical Advice: No CIWA Score - CIWA Score Nausea/Vomitin-No Nausea/No Vomiting Muscle Tremors: 2 Anxiety: 2 Agitation: 0-Normal Activity Paroxysmal Sweats: No Perspiration Orientation: 0-Oriented Tacttile Disturbances: 0-None Auditory Disturbances: 0-None Visual Disturbances: 0-None Headache: 0-None Present CIWA-Ar Total Score: 4
== END 2019-10-01 12:22 | disposition other institution (70) | DRG 774 ==
LOC: YASAS 09:44 → Y3N 12:17
PROVIDERS: ADMIT Allergy & Immunology; ATTEND Allergy & Immunology
PROC: HZ2ZZZZ Detoxification Services for Substance Abuse Treatment (ICD-10-PCS; principal; 2019-09-26)
DX: F10.230 Alcohol dependence with withdrawal, uncomplicated (principal); F14.20 Cocaine dependence, uncomplicated; F17.213 Nicotine dependence, cigarettes, with withdrawal; F19.24 Other psychoactive substance dependence with psychoactive substance-induced mood disorder; F19.280 Other psychoactive substance dependence with psychoactive substance-induced anxiety disorder; Z21 Asymptomatic human immunodeficiency virus [HIV] infection status; N14.2 Nephropathy induced by unspecified drug, medicament or biological substance; R94.5 Abnormal results of liver function studies; B18.2 Chronic viral hepatitis C; G47.00 Insomnia, unspecified; D69.6 Thrombocytopenia, unspecified; Z62.810 Personal history of physical and sexual abuse in childhood
CPT/HCPCS: 36415; 80053; 85027; 86593

== ENCOUNTER 2020-01-28 13:18 | Emergency (ER) | payer OTHER ==
[2020-01-28 13:37] VITALS: BMI 20.3
[2020-01-28 14:32] VITALS: TEMP 99.3
--- NOTE | 2020-01-28 14:38 | PDOC ---
History of Present Illness - General Chief Complaint: Alcohol intoxication Stated Complaint: FEVER Time Seen by Provider: 01/28/20 14:09 History Source: Patient Exam Limitations: No Limitations - History of Present Illness Initial Comments: 01/28/20 14:45 49 yo male pmh HTN and HIV (on Haart meds, does not know last CD4, followed at [facility]) presents to ED from [facility] detox for a temp of 100.2. Pt has no medical complaints today, states he drank 30 beers which is his normal today and wants to go to detox. Pt states he was at detox approx 5 months ago and had a great experience, states he would like detox today to help change his life for the better. Denies CP, SOB, back pain, sick contacts, recent travel, abdominal pain, changes in bowel or bladder habits. Past History - Medical History Allergies/Adverse Reactions: Allergies Allergy/AdvReac Type Severity Reaction Status Date / Time No Known Allergies Allergy Verified 01/28/20 13:31 Home Medications: Ambulatory Orders Pregabalin [Lyrica -] 150 mg PO TID 03/30/18 Zolpidem Tartrate [Ambien] 10 mg PO HS PRN 03/30/18 Bictegrav/Emtricit/Tenofov Ala [Biktarvy 50-200-25 mg Tablet] 1 each PO DAILY 12/04/18 Anemia: No Asthma: No Cancer: No Cardiac Disorders: No CVA: No COPD: No CHF: No Dementia: No Diabetes: No GI Disorders: No Disorders: No HTN: No Hypercholesterolemia: No Kidney Stones: No Liver Disease: No Seizures: No Thyroid Disease: No - Surgical History Abdominal Surgery: No Appendectomy: No Cardiac Surgery: No Cholecystectomy: No Lung Surgery: No Neurologic Surgery: No Orthopedic Surgery: No - Reproductive History Testicular Surgery: No - Psycho-Social/Smoking History Smoking History: Current every day smoker Have you smoked in the past 12 months: Yes Number of Cigarettes Smoked Daily: 3 Cigars Per Day: 0 Information on smoking cessation initiated: No 'Breaking Loose' booklet given: 09/26/19 - Substance Abuse Hx (Audit-C & DAST Scrn) How often the patient has a drink containing alcohol: 4 0r more times/wk Number of drinks the patient has on a typical day: 10 or more How often the patient has six or more drinks on one occasion: Daily or almost daily Score: In Men: 4 or > Positive; In Women: 3 or > Positive: 12 Screen Result (Pos requires Nsg. Audit-10AR): Positive In the last yr the pt used illegal drug/Rx for NonMed reason: Yes Score: Yes response is considered Positive: 1 Screen Result (Positive result requires Nsg. DAST-10): Positive Review of Systems - Review of Systems Constitutional: Yes: Symptoms Reported HEENTM: Yes: Symptoms Reported Respiratory: Yes: Symptoms reported Cardiac (ROS): Yes: Symptoms Reported ABD/GI: Yes: Symptoms Reported : Yes: Symptoms Reported Musculoskeletal: Yes: Symptoms Reported Integumentary: Yes: Symptoms Reported Neurological: Yes: Symptoms reported *Physical Exam - Vital Signs Last Vital Signs Temp Pulse Resp BP Pulse Ox 99.3 F 104 H 20 148/96 96 01/28/20 14:31 01/28/20 13:31 01/28/20 13:31 01/28/20 13:31 01/28/20 13:31 - Physical Exam General Appearance: Yes: Nourished, Appropriately Dressed. No: Apparent Distress HEENT: positive: EOMI Neck: positive: Supple. negative: Carotid bruit Respiratory/Chest: positive: Lungs Clear, Normal Breath Sounds. negative: Respiratory Distress, Accessory Muscle Use Cardiovascular: positive: Regular Rhythm, S1, S2, Tachycardia. negative: Edema, JVD, Murmur Vascular Pulses: Dorsalis-Pedis (R): 4+, Doralis-Pedis (L): 4+ Gastrointestinal/Abdominal: positive: Flat, Soft Musculoskeletal: negative: CVA Tenderness Extremity: positive: Normal Capillary Refill, Normal Inspection, Normal Range of Motion Integumentary: positive: Normal Color, Dry, Warm Neurologic: positive: Fully Oriented, Alert, Normal Mood/Affect (intox), Normal Response Medical Decision Making - Medical Decision Making 49 yo male pmh HTN and HIV (on Haart meds, does not know last CD4, followed at [facility]) presents to ED from [facility] detox for a temp of 100.2. Pt has no medical complaints today, states he drank 30 beers which is his normal today and wants to go to detox. Pt states he was at detox approx 5 months ago and had a great experience, states he would like detox today to help change his life for the better. Denies CP, SOB, back pain, sick contacts, recent travel, abdominal pain, changes in bowel or bladder habits. Vitals show rectal temp 99.3, HR at the bedside 99, otherwise WNL Pt has no current medical complaints 01/28/20 14:[address] Tubbs at [facility] detox, pt medically cleared (rectal temp 99.3) no medical complaints and is requesting detox from alcohol and cocaine yesterday Pt understands DC plans Discharge - Discharge Information Problems reviewed: Yes Clinical Impression/Diagnosis: Desire for detoxification, Alcohol intoxication Condition: Stable Disposition: HOME - Admission No - Follow up/Referral - Patient Discharge Instructions Patient Printed Discharge Instructions: DI for Alcohol Abuse Additional Instructions: Please head to [facility] for Detox. Return to the ER for new or concerning symptoms THank you - Post Discharge Activity
--- NOTE | 2020-01-28 14:43 | PDOC ---
Documentation entered by Nat Washington SCRIBE, acting as scribe for Byron Venegas MD. Byron Venegas MD: This documentation has been prepared by the Felix cosme Adrianna, SCRIBE, under my direction and personally reviewed by me in its entirety. I confirm that the documentation accurately reflects all work, treatment, procedures, and medical decision making performed by me. Attending Attestation - Resident Resident Name: Vishnu Lewis - ED Attending Attestation I have performed the following: I have examined & evaluated the patient, The case was reviewed & discussed with the resident, I agree w/resident's findings & plan, Exceptions are as noted - HPI HPI: The patient is a 49 year old male, with a significant PMH of EtOH dependence, cocaine abuse, substance induced sleep disorder, Hepatitis C, HIV, neuropathy, who presents to the ED seeking detox. Patient admits to EtOH abuse (last drank yesterday), and would like to go to detox at this time. He reports using crack- cocaine for the first time yesterday. No other complaints at this time. Allergies: NKA, NKDA Surgical History: None reported Social History: EtOH dependence, cocaine abuse, substance induced sleep disorder - Physicial Exam PE: GENERAL: The patient is awake, alert, and fully oriented, Nontoxic - in no acute distress. HEAD: Normocephalic, atraumatic. EYES: extraocular movements intact, sclera anicteric, conjunctiva clear. ENT: Normal voice, Moist mucous membranes. NECK: Normal range of motion, supple LUNGS: Breath sounds equal, clear to auscultation bilaterally. No wheezes, no rhonchi, no rales. HEART: Regular rate and rhythm, without murmur, rub or gallop. ABDOMEN: Soft, nontender, No guarding, no rebound.No CVA tenderness EXTREMITIES: Normal range of motion, no edema. No cyanosis. No erythema, or tenderness. NEUROLOGICAL: No facial asymmetry, Normal speech, PSYCH: Normal mood, normal affect. SKIN: Warm, Dry, normal turgor. - Medical Decision Making 01/28/20 14:44 49 M here for ETOH detox. Referred to ED from [facility] for medical clearance for borderline temp of 100.2 at intake. Pt afebrile rectally in ED. No s/s infectious process. - Medically cleared to return to detox Pt is well appearing, with normal vitals. Clinically stable for DC at this time. I discussed the physical exam findings, ancillary test results and final diagnoses with the patient. I answered all of the patient's questions. The patient was satisfied with the care received and felt comfortable with the discharge plan and treatment plan. The patient agrees to follow up with the primary care physician within 24-72 hours. Please note this patient was evaluated during the COVID-19 crisis with the presidential Vaz[place] Act Declaration and the [place] governia executive order number 202. He/she was evaluated and clinical decisions were made relative to healthcare system resources as well as clinical picture during a pandemic crisis situation. Discharge - Discharge Information Problems reviewed: Yes Clinical Impression/Diagnosis: Desire for detoxification, Alcohol intoxication Condition: Stable Disposition: HOME - Follow up/Referral - Patient Discharge Instructions Patient Printed Discharge Instructions: DI for Alcohol Abuse Additional Instructions: Please head to [facility] for Detox. Return to the ER for new or concerning symptoms THank you - Post Discharge Activity
[2020-01-28 14:53] VITALS: BP 130/55; PULSE 99
== END 2020-01-28 15:08 | disposition home or self-care (01) ==
LOC: JER 13:18
DX: F10.129 Alcohol abuse with intoxication, unspecified (principal)
CPT/HCPCS: 99283-25

== ENCOUNTER 2020-01-29 09:05 | Inpatient (IN) | payer OTHER ==
--- NOTE | 2020-01-29 09:51 | BHS.RME ---
Substance Use & Tx History - Substance Use History Alcohol Substance amount: up to 24 beers Frequency of use: Daily Substance route: Oral Date of Last Use: 01/28/20 Cocaine-Crack Substance amount: $50 Frequency of use: Less than 3 times per week Substance route: Smoking Date of Last Use: 01/27/20 Physical/Psych/Mental Status - Behavior General Behavior: Increased activity (restlessness, agitation) Eye Contact: Normal - Cooperativeness Cooperativeness: Cooperative - Thinking Thought Processes: Tight, Logical, Goal Directed - Physical Health Problems Is patient presently having any pain?: No Does patient presently have any injuries (include location): No Does patient currently have a fever: No Is patient : No CIWA Nausea/Vomitin-Mild Nausea/No Vomiting Muscle Tremors: 4-Moderate,w/Arms Extend Anxiety: 1-Mildly Anxious Agitation: 4-Moderately Restless Paroxysmal Sweats: 4-Forehead w/Sweat Beads Orientation: 0-Oriented Tacttile Disturbances: 0-None Auditory Disturbances: 0-None Visual Disturbances: 0-None Headache: 0-None Present CIWA-Ar Total Score: 14
[2020-01-29 10:15] VITALS: BMI 22.8
--- NOTE | 2020-01-29 11:12 | HP ---
CIWA Score Nausea/Vomitin-Mild Nausea/No Vomiting Muscle Tremors: 4-Moderate,w/Arms Extend Anxiety: 1-Mildly Anxious Agitation: 4-Moderately Restless Paroxysmal Sweats: 4-Forehead w/Sweat Beads Orientation: 0-Oriented Tacttile Disturbances: 0-None Auditory Disturbances: 0-None Visual Disturbances: 0-None Headache: 0-None Present CIWA-Ar Total Score: 14 - Admission Criteria OASAS Guidelines: Admission for Medically Managed Detox: Requires at least one of the followin. CIWA greater than 12 2. Seizures within the past 24 hours 3. Delirium tremens within the past 24 hours 4. Hallucinations within the past 24 hours 5. Acute intervention needed for co occurring medical disorder 6. Acute intervention needed for co occurring psychiatric disorder 7. Severe withdrawal that cannot be handled at a lower level of care (continued vomiting, continued diarrhea, abnormal vital signs) requiring intravenous medication and/or fluids 8. Admitting History and Physical - Admission Chief Complaint: "I need to feel better and stop this stupid alcohol." History of Present Illness: 49 year old male with history of alcohol dependence, crack use disorder and nicotine dependence. He was here yesterday with elevated temperature and then had only rectal temperature done and sent back to [facility]. He still had elevated temperature upon return and even higher than earlier in the day. He returns seeking alcohol detox today. Alcohol: up to 24 beers daily, started at age 14, last used 01/29/20. Denies seizures and blackouts, but does endorse the need for an eye lead person daily. Crack: $50 once weekly, started at age 18, last used 01/27/20 Nicotine: 5 ciggs daily, started at age 16 PMH: HIV Disease with neuropathy Psurg: None Psych: Anxiety Disorder Lives alone in his own apartment. He has no legal issues pending. CIWA=14 Breath: 0.000 only drank one beer this morning. 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 Infectious Disease: Yes: HIV - Past Surgical History Past Surgical History: Yes: None - Smoking History Smoking history: Current every day smoker Have you smoked in the past 12 months: Yes Aproximately how many cigarettes per day: 5 - Alcohol/Substance Use Hx Alcohol Use: Yes - Social History Usual Living Arrangement: Yes: Alone Do you think of yourself as: [place], Lesbian or Homosexual ADL: Independent Occupation: SSI due to HIV, [employer] History of Recent Travel: No Admission ROS S - HPI Allergies/Adverse Reactions: Allergies Allergy/AdvReac Type Severity Reaction Status Date / Time No Known Allergies Allergy Verified 01/29/20 10:08 Patient History - Patient Medical History Hx Anemia: No Hx Asthma: No Hx Chronic Obstructive Pulmonary Disease (COPD): No Hx Cancer: No Hx Cardiac Disorders: No Hx Congestive Heart Failure: No Hx Hypertension: No Hx Hypercholesterolemia: No Hx Pacemaker: No HX Cerebrovascular Accident: No Hx Seizures: No Hx Dementia: No Hx Diabetes: No Hx Gastrointestinal Disorders: No Hx Liver Disease: No Hx Genitourinary Disorders: No Hx Sexually Transmitted Disorders: Yes (HIV+) Hx Renal Disease (ESRD): No Hx Thyroid Disease: No Hx Human Immunodeficiency Virus (HIV): Yes Hx Hepatitis C: Yes (treated,) Hx Depression: No Hx Suicide Attempt: No Hx Bipolar Disorder: No Hx Schizophrenia: No - Patient Surgical History Past Surgical History: No Hx Neurologic Surgery: No Hx Cataract Extraction: No Hx Cardiac Surgery: No Hx Lung Surgery: No Hx Breast Surgery: No Hx Breast Biopsy: No Hx Abdominal Surgery: No Hx Appendectomy: No Hx Cholecystectomy: No Hx Genitourinary Surgery: No Hx Section: No Hx Orthopedic Surgery: No Other Surgical History: hemorrhoid surgery 2008 Anesthesia Reaction: No - PPD History Previous Implant?: Yes Documented Results: Negative w/proof Implanted On [facility] Admission?: Yes Date: 09/25/18 Results: 0 mm PPD to be Administered?: Yes - Reproductive History Patient : (n/a) - Smoking Cessation Smoking history: Current every day smoker Have you smoked in the past 12 months: Yes Aproximately how many cigarettes per day: 5 Cigars Per Day: 0 Hx Chewing Tobacco Use: No Initiated information on smoking cessation: Yes 'Breaking Loose' booklet given: 01/29/20 - Substances abused Alcohol Substance route: Oral Frequency: Daily Amount used: 2-24 cans of beer Age of first use: 15 Date of last use: 01/29/20 Crack Substance route: Smoking Frequency: 1-3 times last 30 days Amount used: " a little bit" Age of first use: 18 Date of last use: 01/27/20 Admission Physical Exam BHS - Vital Signs Vital Signs: Vital Signs - 24 hr 01/29/20 01/29/20 10:11 10:19 Temperature 98 F Pulse Rate 103 H Respiratory 20 Rate Blood Pressure 140/72 O2 Sat by Pulse 98 Oximetry (%) - Physical General Appearance: Yes: Nourished, Appropriately Dressed, Mild Distress, Thin, Tremorous, Irritable, Sweating, Anxious HEENTM: Yes: EOMI, Hearing grossly Normal, Normal ENT Inspection, Normocephalic, Normal Voice, BRIDGET, Pharynx Normal, Tm's normal Respiratory: Yes: Chest Non-Tender, Lungs Clear, Normal Breath Sounds, No Respiratory Distress, No Accessory Muscle Use Neck: Yes: No masses,lesions,Nodules, Supple, Trachea in good position Breast: Yes: Within Normal Limits Cardiology: Yes: Regular Rhythm, Regular Rate, S1, S2 Abdominal: Yes: Normal Bowel Sounds, Non Tender, Flat, Soft Genitourinary: Yes: Within Normal Limits Back: Yes: Normal Inspection Musculoskeletal: Yes: full range of Motion, Gait Steady, Pelvis Stable Extremities: Yes: Normal Capillary Refill, Normal Inspection, Normal Range of Motion, Non-Tender Neurological: Yes: mold filler II-XII NML intact, Fully Oriented, Alert, Motor Strength 5/5, Normal Mood/Affect, Normal Response Integumentary: Yes: Normal Color, Dry, Warm Lymphatic: Yes: Within Normal Limits - Diagnostic (1) Alcohol dependence with uncomplicated withdrawal Current Visit: Yes Status: Acute Comment: . (2) Alcohol-induced sleep disorder Current Visit: Yes Status: Acute (3) Drug-induced anxiety disorder Current Visit: Yes Status: Acute (4) Nicotine dependence Current Visit: Yes Status: Acute Qualifiers: Nicotine product type: cigarettes Substance use status: in withdrawal Qualified Code(s): F17.213 - Nicotine dependence, cigarettes, with withdrawal Comment: . 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 Level of Care: Medically Managed Detox Regimen/Protocol: Librium Claeared for Rehab Admission: No Screened but not Admitted - Documentation of Visit Screened but not Admitted: No Breathalyzer - Breathalyzer Breathalyzer: 0 Urine Drug Screen - Test Device Lot number: [id number] Expiration date: 03/22/21 - Control Is test valid?: Yes - Results Drug screen NEGATIVE: No Urine drug screen results: BZO-Benzodiazepines Inpatient Rehab Admission - Rehab Decision to Admit Inpatient rehab admission?: No
[2020-01-29] MEDS ORDERED: ONDANSETRON *ODT* 4 MG TABLET SL ONE (11:15)
[2020-01-29] MEDS ORDERED: MAGNESIUM HYDROX 2400MG/30ML ORAL SUSPENSION 30 ML CUP PO PRN (11:15)
[2020-01-29] MEDS ORDERED: IBUPROFEN 400 MG TABLET (FP) PO PRN (11:15)
[2020-01-29] MEDS ORDERED: BISMUTH SUBSALICYLATE 262 MG/15 ML BTL PO PRN (11:15)
[2020-01-29] MEDS ORDERED: MAGNESIUM CITRATE 300 ML BOTTLE PO PRN (11:15)
[2020-01-29] MEDS ORDERED: MAG HYDROX/AL HYDROX/SIMETH 30 ML UNIT-DOSE CUP PO PRN (11:15)
[2020-01-29] MEDS ORDERED: chlordiazePOXIDE HCL 25 MG CAPSULE PO PRN (11:15)
[2020-01-29] MEDS ORDERED: ACETAMINOPHEN 325 MG TABLET (FP) PO PRN ×2 (11:15)
[2020-01-29] MEDS ORDERED: METHOCARBAMOL 500 MG TABLET PO PRN (11:15)
[2020-01-29] MEDS ORDERED: NICOTINE POLACRILEX 2 MG GUM BUC PRN (11:15)
[2020-01-29] MEDS ORDERED: MENTHOL/PHENOL 1 EACH UD MM PRN (11:15)
[2020-01-29] MEDS ORDERED: TUBERCULIN PPD 5 TU/0.1ML VIAL ID ONE (11:39)
[2020-01-29] MEDS: chlordiazePOXIDE HCL 25 MG CAPSULE PO SCH ×3 (11:42→22:22)
[2020-01-29] MEDS: PRENATAL VITAMINS W/ FOLIC ACID TABLET (FP) PO SCH (11:43)
[2020-01-29] MEDS: NICOTINE 7 MG/24 HOURS TOPICAL PATCH TD SCH (11:43)
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
[2020-01-29 12:48] LABS: HEMATOCRIT 35.6 % (35.4-49); HEMOGLOBIN 11.8 GM/dL (11.7-16.9); MCHC 33.3 g/dl (32.0-35.9); MEAN CELL VOLUME 102.1 fl (80-96); MEAN PLT VOLUME 9.2 fl (7.5-11.1); PLATELET COUNT 103 K/MM3 (134-434); RBC 3.49 M/mm3 (4.00-5.60); RDW 14.2 % (11.9-15.9); WHITE BLOOD COUNT 6.3 K/mm3 (4.0-10.0)
[2020-01-29 13:02] LABS: ALBUMIN 3.8 g/dl (3.4-5.0); BILIRUBIN,TOTAL 1.2 mg/dL (0.2-1); BLOOD UREA NITROGEN 14.7 mg/dL (7-18); CALCIUM 8.7 mg/dL (8.5-10.1); CREATININE 0.9 mg/dL (0.55-1.3); POTASSIUM 4.3 mmol/L (3.5-5.1); TOT PROT 8.3 g/dl (6.4-8.2)
[2020-01-29] MEDS: hydrOXYzine PAMOATE 25 MG CAPSULE (FP) PO SCH ×3 (13:36→22:21)
[2020-01-29] MEDS: PREGABALIN 75 MG CAPSULE PO SCH ×2 (13:36→22:21)
[2020-01-29] MEDS: MELATONIN 5 MG TABLETS PO SCH (22:21)
[2020-01-29] MEDS: SUVOREXANT 15 MG TABLET PO PRN (22:22)
[2020-01-29] MEDS: THIAMINE HCL 100 MG TABLET (FP) PO SCH (22:22)
[2020-01-30] MEDS: chlordiazePOXIDE HCL 25 MG CAPSULE PO SCH ×4 (06:07→22:01)
[2020-01-30] MEDS: PREGABALIN 75 MG CAPSULE PO SCH ×3 (06:07→22:01)
[2020-01-30] MEDS: hydrOXYzine PAMOATE 25 MG CAPSULE (FP) PO SCH ×5 (06:07→22:00)
[2020-01-30] MEDS: PRENATAL VITAMINS W/ FOLIC ACID TABLET (FP) PO SCH (10:15)
[2020-01-30] MEDS: BICTEGRAV/EMTRICIT/TENOFOV (BIKTARVY) 50-200-25 MG TABLET PO SCH (10:15)
[2020-01-30] MEDS: SULFAMETHOXAZOLE/TRIMETHOPRIM 800MG/160MG D.S. TABLET PO SCH (10:15)
[2020-01-30] MEDS: NICOTINE 7 MG/24 HOURS TOPICAL PATCH TD SCH (10:16)
--- NOTE | 2020-01-30 12:58 | PN ---
S CIWA - CIWA Score Nausea/Vomitin-No Nausea/No Vomiting Muscle Tremors: 4-Moderate,w/Arms Extend Anxiety: 4-Mod. Anxious/Guarded Agitation: 3 Paroxysmal Sweats: 1-Minimal Palms Moist Orientation: 0-Oriented Tacttile Disturbances: 0-None Auditory Disturbances: 0-None Visual Disturbances: 0-None Headache: 0-None Present CIWA-Ar Total Score: 12 BHS Progress Note (SOAP) Subjective: Pt is a 49 y/o male admitted to detox for alcohol withdrawal sx c/o Body aches tremors intermittent sleep Objective: 01/30/20 12:56 Vital Signs - 24 hr 01/29/20 01/29/20 01/29/20 13:26 16:42 20:38 Temperature 98.9 F 97.7 F Pulse Rate 90 87 90 Respiratory 20 18 18 Rate Blood Pressure 130/64 126/69 146/57 L O2 Sat by Pulse 98 96 Oximetry (%) 01/30/20 01/30/20 01/30/20 06:43 06:44 06:45 Temperature 97.1 F L Pulse Rate 86 Respiratory 18 Rate Blood Pressure 116/69 O2 Sat by Pulse 97 97 Oximetry (%) 01/30/20 10:08 Temperature 97.3 F L Pulse Rate 85 Respiratory 16 Rate Blood Pressure 131/85 O2 Sat by Pulse 98 Oximetry (%) Laboratory Tests 01/29/20 01/29/20 01/29/20 11:00 11:00 11:00 WBC 6.3 RBC 3.49 L Hgb 11.8 Hct 35.6 D MCV 102.1 H MCH 34.0 H MCHC 33.3 RDW 14.2 Plt Count 103 L D MPV 9.2 Sodium 137 Potassium 4.3 Chloride 104 Carbon Dioxide 25 Anion Gap 8 BUN 14.7 Creatinine 0.9 Est GFR (CKD-EPI)AfAm 116.65 Est GFR (CKD-EPI)NonAf 100.64 Random Glucose 106 Calcium 8.7 Total Bilirubin 1.2 H AST 54 H ALT 58 Alkaline Phosphatase 164 H Total Protein 8.3 H Albumin 3.8 Syphilis Serology Non-reactive COVID-19 ([place]) 01/29/20 13:00 WBC RBC Hgb Hct MCV MCH MCHC RDW Plt Count MPV Sodium Potassium Chloride Carbon Dioxide Anion Gap BUN Creatinine Est GFR (CKD-EPI)AfAm Est GFR (CKD-EPI)NonAf Random Glucose Calcium Total Bilirubin AST ALT Alkaline Phosphatase Total Protein Albumin Syphilis Serology COVID-19 ([place]) Not detected covid-19 not detected alert o x 3 nad oob ambulating with steady gait Assessment: 01/30/20 12:57 withdrawal sx Plan: cont detox increase po fluids maintain safety
[2020-01-30] MEDS: THIAMINE HCL 100 MG TABLET (FP) PO SCH (22:00)
[2020-01-30] MEDS: MELATONIN 5 MG TABLETS PO SCH (22:00)
[2020-01-31] MEDS: PREGABALIN 75 MG CAPSULE PO SCH ×3 (06:27→22:36)
[2020-01-31] MEDS: hydrOXYzine PAMOATE 25 MG CAPSULE (FP) PO SCH ×5 (06:27→22:36)
[2020-01-31] MEDS: chlordiazePOXIDE HCL 25 MG CAPSULE PO SCH ×4 (06:28→22:36)
[2020-01-31] MEDS: BICTEGRAV/EMTRICIT/TENOFOV (BIKTARVY) 50-200-25 MG TABLET PO SCH (07:59)
[2020-01-31] MEDS: SULFAMETHOXAZOLE/TRIMETHOPRIM 800MG/160MG D.S. TABLET PO SCH (10:09)
[2020-01-31] MEDS: PRENATAL VITAMINS W/ FOLIC ACID TABLET (FP) PO SCH (10:10)
[2020-01-31] MEDS: NICOTINE 7 MG/24 HOURS TOPICAL PATCH TD SCH (10:10)
--- NOTE | 2020-01-31 11:21 | PN ---
[facility] CIWA - CIWA Score Nausea/Vomitin-No Nausea/No Vomiting Muscle Tremors: 2 Anxiety: 4-Mod. Anxious/Guarded Agitation: 3 Paroxysmal Sweats: 2 Orientation: 0-Oriented Tacttile Disturbances: 0-None Auditory Disturbances: 0-None Visual Disturbances: 0-None Headache: 0-None Present CIWA-Ar Total Score: 11 S Progress Note (SOAP) Subjective: Complaints of sweats, tremors, anxiety and agitation. Objective: 01/31/20 11:17 Vital Signs 01/31/20 01/31/20 06:47 08:44 Temperature 98.8 F 100.5 F H Pulse Rate 86 92 H Respiratory 18 20 Rate Blood Pressure 116/71 116/68 O2 Sat by Pulse 99 98 Oximetry (%) Laboratory Last Values WBC 6.3 K/mm3 (4.0-10.0) 01/29/20 11:00 RBC 3.49 M/mm3 (4.00-5.60) L 01/29/20 11:00 Hgb 11.8 GM/dL (11.7-16.9) 01/29/20 11:00 Hct 35.6 % (35.4-49) D 01/29/20 11:00 MCV 102.1 fl (80-96) H 01/29/20 11:00 MCH 34.0 pg (25.7-33.7) H 01/29/20 11:00 MCHC 33.3 g/dl (32.0-35.9) 01/29/20 11:00 RDW 14.2 % (11.9-15.9) 01/29/20 11:00 Plt Count 103 K/MM3 (134-434) L D 01/29/20 11:00 MPV 9.2 fl (7.5-11.1) 01/29/20 11:00 Sodium 137 mmol/L (136-145) 01/29/20 11:00 Potassium 4.3 mmol/L (3.5-5.1) 01/29/20 11:00 Chloride 104 mmol/L (98-107) 01/29/20 11:00 Carbon Dioxide 25 mmol/L (21-32) 01/29/20 11:00 Anion Gap 8 MMOL/L (8-16) 01/29/20 11:00 BUN 14.7 mg/dL (7-18) 01/29/20 11:00 Creatinine 0.9 mg/dL (0.55-1.3) 01/29/20 11:00 Est GFR (CKD-EPI)AfAm 116.65 01/29/20 11:00 Est GFR (CKD-EPI)NonAf 100.64 01/29/20 11:00 Random Glucose 106 mg/dL (74-106) 01/29/20 11:00 Calcium 8.7 mg/dL (8.5-10.1) 01/29/20 11:00 Total Bilirubin 1.2 mg/dL (0.2-1) H 01/29/20 11:00 AST 54 U/L (15-37) H 01/29/20 11:00 ALT 58 U/L (13-61) 01/29/20 11:00 Alkaline Phosphatase 164 U/L (45-117) H 01/29/20 11:00 Total Protein 8.3 g/dl (6.4-8.2) H 01/29/20 11:00 Albumin 3.8 g/dl (3.4-5.0) 01/29/20 11:00 Syphilis Serology Non-reactive (NONREACTIVE) 01/29/20 11:00 COVID-19 ([facility]) Not detected (Not Detected) 01/29/20 13:00 Labs noted. Assessment: 01/31/20 11:18 Alert and oriented x3, in no acute respiratory distress. Full ROM, ambulating in the unit without assistance. Mild withdrawal symptoms. Plan: Continue detox protocol.
[2020-01-31] MEDS: SUVOREXANT 15 MG TABLET PO PRN (22:36)
[2020-01-31] MEDS: THIAMINE HCL 100 MG TABLET (FP) PO SCH (22:36)
[2020-01-31] MEDS: MELATONIN 5 MG TABLETS PO SCH (22:36)
[2020-02-01] MEDS ORDERED: chlordiazePOXIDE HCL 10 MG CAPSULE PO PRN
[2020-02-01] MEDS: chlordiazePOXIDE HCL 10 MG CAPSULE PO SCH ×2 (06:11→10:06)
[2020-02-01] MEDS: PREGABALIN 75 MG CAPSULE PO SCH (06:11)
[2020-02-01] MEDS: hydrOXYzine PAMOATE 25 MG CAPSULE (FP) PO SCH ×2 (06:11→10:06)
[2020-02-01] MEDS: BICTEGRAV/EMTRICIT/TENOFOV (BIKTARVY) 50-200-25 MG TABLET PO SCH (07:18)
[2020-02-01 09:37] VITALS: BP 124/72; PULSE 96; TEMP 98.4
[2020-02-01] MEDS: NICOTINE 7 MG/24 HOURS TOPICAL PATCH TD SCH (10:06)
[2020-02-01] MEDS: SULFAMETHOXAZOLE/TRIMETHOPRIM 800MG/160MG D.S. TABLET PO SCH (10:06)
[2020-02-01] MEDS: PRENATAL VITAMINS W/ FOLIC ACID TABLET (FP) PO SCH (10:06)
--- NOTE | 2020-02-01 13:49 | DS ---
[facility] Detox Discharge Summary Admission Date: 01/29/20 Discharge Date: 02/01/20 - History Present History: Alcohol Dependence Additional Comments: 49 YEARS OLD MALE ADMITTED ON 01/29/20 FOR ALCOHOL WITHDRAWAL SXS MANAGEMENT TREATED WITH LIBRIUM DETOX REGIMENT MR CONNORS PREFERS TO LEAVE THE DETOX TODAY THAT HIS SON IS IN THE HOSPITAL MR CONNORS IS ALERT ORIENTED X 3 SPEECH CLEARLY COHERENTLY AMBULATING STEADY GAITS CIWA 6 CARDIAC S1S2 REGULAR RATE RHYTHM RESPIRATORY CLEAR LUNG SOUNDS BILATERALLY ON AUSCULTATION EXTREMITIES FULL RANGE OF MOTION Pertinent Past History: TIME FOR DISCHARGE 40 minutes treatment team discussing benefits of librium regiment completion mr connors prefers to return to infectious disease provider in the community for follow up - Physical Exam Results Vital Signs: Vital Signs Temperature 98.4 F 02/01/20 09:16 Pulse Rate 96 H 02/01/20 09:16 Respiratory Rate 18 02/01/20 09:16 Blood Pressure 124/72 02/01/20 09:16 O2 Sat by Pulse Oximetry (%) 96 02/01/20 05:00 Pertinent Admission Physical Exam Findings: alcohol withdrawal Laboratory Tests 01/29/20 01/29/20 01/29/20 11:00 11:00 11:00 WBC 6.3 RBC 3.49 L Hgb 11.8 Hct 35.6 D MCV 102.1 H MCH 34.0 H MCHC 33.3 RDW 14.2 Plt Count 103 L D MPV 9.2 Sodium 137 Potassium 4.3 Chloride 104 Carbon Dioxide 25 Anion Gap 8 BUN 14.7 Creatinine 0.9 Est GFR (CKD-EPI)AfAm 116.65 Est GFR (CKD-EPI)NonAf 100.64 Random Glucose 106 Calcium 8.7 Total Bilirubin 1.2 H AST 54 H ALT 58 Alkaline Phosphatase 164 H Total Protein 8.3 H Albumin 3.8 Syphilis Serology Non-reactive COVID-19 ([facility]) 01/29/20 13:00 WBC RBC Hgb Hct MCV MCH MCHC RDW Plt Count MPV Sodium Potassium Chloride Carbon Dioxide Anion Gap BUN Creatinine Est GFR (CKD-EPI)AfAm Est GFR (CKD-EPI)NonAf Random Glucose Calcium Total Bilirubin AST ALT Alkaline Phosphatase Total Protein Albumin Syphilis Serology COVID-19 ([facility]) Not detected lab noted - Treatment Hospital Course: Detox Protocol Followed, Detoxed Safely, Responded well, Discharged Condition Good, Rehab Referral Accepted Patient has Accepted a Rehab Referral to: community support SHELDON Graves Medication Discharge Medications: Ambulatory Orders Pregabalin [Lyrica -] 150 mg PO TID 03/30/18 Zolpidem Tartrate [Ambien] 10 mg PO HS PRN 03/30/18 Bictegrav/Emtricit/Tenofov Ala [Biktarvy 50-200-25 mg Tablet] 1 each PO DAILY 12/04/18 Sulfamethoxazole/Trimethoprim [Sulfamethoxazole-Tmp Ds Tablet] 1 each PO DAILY 01/29/20 - Diagnosis (1) Alcohol dependence Status: Acute Qualifiers: Substance use status: uncomplicated Qualified Code(s): F10.20 - Alcohol dependence, uncomplicated (2) Hepatitis C Status: Chronic Qualifiers: Viral hepatitis chronicity: carrier Qualified Code(s): B18.2 - Chronic viral hepatitis C (3) Substance induced mood disorder Status: Suspected (4) Nicotine dependence Status: Acute Qualifiers: Nicotine product type: cigarettes Substance use status: in withdrawal Qualified Code(s): F17.213 - Nicotine dependence, cigarettes, with withdrawal (5) HIV (human immunodeficiency virus infection) Status: Chronic Qualifiers: HIV symptom status: asymptomatic Qualified Code(s): Z21 - Asymptomatic human immunodeficiency virus [HIV] infection status - AMA Did Patient Leave Against Medical Advice: No CIWA Score - CIWA Score Nausea/Vomitin-No Nausea/No Vomiting Muscle Tremors: 1-None Visible, but [place] Anxiety: 2 Agitation: 3 Paroxysmal Sweats: No Perspiration Orientation: 0-Oriented Tacttile Disturbances: 0-None Auditory Disturbances: 0-None Visual Disturbances: 0-None Headache: 0-None Present CIWA-Ar Total Score: 6
[2020-02-02] MEDS ORDERED: chlordiazePOXIDE HCL 10 MG CAPSULE PO SCH (05:00)
[2020-02-03] MEDS ORDERED: chlordiazePOXIDE HCL 10 MG CAPSULE PO ONE (05:00)
== END 2020-02-01 12:55 | disposition home or self-care (01) | DRG 774 ==
LOC: YASAS 09:05 → Y5N DETOX 10:19
PROVIDERS: ADMIT Allergy & Immunology; ATTEND Allergy & Immunology
PROC: HZ2ZZZZ Detoxification Services for Substance Abuse Treatment (ICD-10-PCS; principal; 2020-01-29)
DX: F10.230 Alcohol dependence with withdrawal, uncomplicated (principal); F14.10 Cocaine abuse, uncomplicated; F17.213 Nicotine dependence, cigarettes, with withdrawal; F10.282 Alcohol dependence with alcohol-induced sleep disorder; F10.280 Alcohol dependence with alcohol-induced anxiety disorder; F19.24 Other psychoactive substance dependence with psychoactive substance-induced mood disorder; F41.9 Anxiety disorder, unspecified; Z21 Asymptomatic human immunodeficiency virus [HIV] infection status; G62.9 Polyneuropathy, unspecified; G47.00 Insomnia, unspecified; Z62.810 Personal history of physical and sexual abuse in childhood
CPT/HCPCS: 36415; 80053; 85027; 86780; U0003

== ENCOUNTER 2020-03-09 10:23 | Inpatient (IN) | payer OTHER ==
--- NOTE | 2020-03-09 10:47 | BHS.RME ---
Substance Use & Tx History - Substance Use History Alcohol Substance amount: 24 beers Frequency of use: Daily Substance route: Oral Date of Last Use: 03/09/20 Cocaine-Crack Substance amount: $50 Frequency of use: Daily Substance route: Smoking Date of Last Use: 03/08/20 Nicotine Substance amount: 5 ciggs Frequency of use: Daily Substance route: Smoking Date of Last Use: 03/09/20 Physical/Psych/Mental Status - Behavior General Behavior: Increased activity (restlessness, agitation) Eye Contact: Normal - Cooperativeness Cooperativeness: Cooperative - Thinking Thought Processes: Tight, Logical, Goal Directed - Physical Health Problems Is patient presently having any pain?: No Does patient presently have any injuries (include location): No Does patient currently have a fever: No Is patient : No CIWA Nausea/Vomitin Muscle Tremors: 3 Anxiety: 3 Agitation: 2 Paroxysmal Sweats: 2 Orientation: 1-Uncertain about Date Tacttile Disturbances: 0-None Auditory Disturbances: 0-None Visual Disturbances: 0-None Headache: 0-None Present CIWA-Ar Total Score: 13
--- NOTE | 2020-03-09 10:57 | HP ---
CIWA Score Nausea/Vomitin Muscle Tremors: 3 Anxiety: 3 Agitation: 2 Paroxysmal Sweats: 2 Orientation: 1-Uncertain about Date Tacttile Disturbances: 0-None Auditory Disturbances: 0-None Visual Disturbances: 0-None Headache: 0-None Present CIWA-Ar Total Score: 13 - Admission Criteria OASAS Guidelines: Admission for Medically Managed Detox: Requires at least one of the followin. CIWA greater than 12 2. Seizures within the past 24 hours 3. Delirium tremens within the past 24 hours 4. Hallucinations within the past 24 hours 5. Acute intervention needed for co occurring medical disorder 6. Acute intervention needed for co occurring psychiatric disorder 7. Severe withdrawal that cannot be handled at a lower level of care (continued vomiting, continued diarrhea, abnormal vital signs) requiring intravenous medication and/or fluids 8. Admitting History and Physical - Admission Chief Complaint: " I am serious about getting help this time." History of Present Illness: 49 year old male with history of alcohol dependence with withdrawal, cocaine use disorder, nicotine dependence. He was last here in 01/28-02/01/20 and left early discharge due to issue with son. However, he is willing to sign behavioral contract and complete detox this time. 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 Has no legal issues pending. He meets criteria for detox as he has had recent blackouts and has medical and psychiatric co-morbidities. 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 HIV, [employer]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 History of Recent Travel: No Admission ROS [facility] - [facility] Allergies/Adverse Reactions: Allergies Allergy/AdvReac Type Severity Reaction Status Date / Time No Known Allergies Allergy Verified 03/09/20 11:01 Exam Limitations: No Limitations - Ebola screening Have you traveled outside of the country in the last 21 days: No Have you had contact with anyone from an Ebola affected area: No Have you been sick,other than usual withdrawal symptoms: No Do you have a fever: No - Review of Systems Constitutional: Chills EENT: reports: No Symptoms Reported Respiratory: reports: No Symptoms reported Cardiac: reports: No Symptoms Reported GI: reports: No Symptoms Reported : reports: No Symptoms Reported Musculoskeletal: reports: No Symptoms Reported Integumentary: reports: No Symptoms Reported Neuro: reports: Tremors Endocrine: reports: No Symptoms Reported Hematology: reports: No Symptoms Reported Psychiatric: reports: Judgement Intact, Mood/Affect Appropiate, Orientated x3, Agitated, Anxious Other Systems: Reviewed and Negative Patient History - Patient Medical History Hx Anemia: No Hx Asthma: No Hx Chronic Obstructive Pulmonary Disease (COPD): No Hx Cancer: No Hx Cardiac Disorders: No Hx Congestive Heart Failure: No Hx Hypertension: No Hx Hypercholesterolemia: No Hx Pacemaker: No HX Cerebrovascular Accident: No Hx Seizures: No Hx Dementia: No Hx Diabetes: No Hx Gastrointestinal Disorders: No Hx Liver Disease: No Hx Genitourinary Disorders: No Hx Sexually Transmitted Disorders: Yes (HIV+) Hx Renal Disease (ESRD): No Hx Thyroid Disease: No Hx Human Immunodeficiency Virus (HIV): Yes Hx Hepatitis C: Yes (treated,) Hx Depression: No Hx Suicide Attempt: No Hx Bipolar Disorder: No Hx Schizophrenia: No - Patient Surgical History Past Surgical History: No Hx Neurologic Surgery: No Hx Cataract Extraction: No Hx Cardiac Surgery: No Hx Lung Surgery: No Hx Breast Surgery: No Hx Breast Biopsy: No Hx Abdominal Surgery: No Hx Appendectomy: No Hx Cholecystectomy: No Hx Genitourinary Surgery: No Hx Section: No Hx Orthopedic Surgery: No Other Surgical History: hemorrhoid surgery 2008 Anesthesia Reaction: No - PPD History Date: 01/31/20 Results: 0 mm - Smoking Cessation Smoking history: Current every day smoker Have you smoked in the past 12 months: Yes Aproximately how many cigarettes per day: 5 Cigars Per Day: 0 Hx Chewing Tobacco Use: No Initiated information on smoking cessation: Yes 'Breaking Loose' booklet given: 03/09/20 - Substances abused Alcohol Substance route: Oral Frequency: Daily Amount used: 24 beers daily Age of first use: 14 Date of last use: 03/09/20 Crack Substance route: Smoking Frequency: Daily Amount used: $50 Age of first use: 18 Date of last use: 03/08/20 Admission Physical Exam S - Physical General Appearance: Yes: Mild Distress, Alcohol on Breath, Thin, Tremorous, Irritable, Sweating, Anxious HEENTM: Yes: EOMI, Hearing grossly Normal, Normal ENT Inspection, Normocephalic, Normal Voice, BRIDGET, Pharynx Normal, Tm's normal Respiratory: Yes: Chest Non-Tender, Lungs Clear, Normal Breath Sounds, No Respiratory Distress, No Accessory Muscle Use Neck: Yes: No masses,lesions,Nodules, Supple, Trachea in good position Breast: Yes: Within Normal Limits Cardiology: Yes: Regular Rhythm, Regular Rate, S1, S2 Abdominal: Yes: Normal Bowel Sounds, Non Tender, Flat, Soft Genitourinary: Yes: Within Normal Limits Back: Yes: Normal Inspection Musculoskeletal: Yes: full range of Motion, Gait Steady, Pelvis Stable Extremities: Yes: Normal Capillary Refill, Normal Inspection, Normal Range of Motion, Non-Tender Neurological: Yes: terrazzo layer II-XII NML intact, Fully Oriented, Alert, Motor Strength 5/5, Normal Mood/Affect, Normal Response Integumentary: Yes: Normal Color, Dry, Warm Lymphatic: Yes: Within Normal Limits - Diagnostic (1) Alcohol dependence with uncomplicated withdrawal Current Visit: Yes Status: Acute Comment: . (2) Cocaine use disorder Current Visit: Yes Status: Acute (3) Drug-induced anxiety disorder Current Visit: Yes Status: Acute (4) Nicotine dependence Current Visit: Yes Status: Acute Qualifiers: Nicotine product type: cigarettes Substance use status: in withdrawal Qualified Code(s): F17.213 - Nicotine dependence, cigarettes, with withdrawal Comment: . 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 Current Visit: Yes Status: Chronic (10) Thrombocytopenia Current Visit: Yes Status: Chronic Cleared for Admission S - Detox or Rehab [facility] Level of Care: Medically Managed Detox Regimen/Protocol: Librium Claeared for Rehab Admission: No Screened but not Admitted - Documentation of Visit Screened but not Admitted: No Breathalyzer - Breathalyzer Breathalyzer: 0.241 Vital Signs - Vital Signs Vital signs refused: No Temperature: 98.5 F Temperature source: Oral Pulse Rate: 66 Respiratory Rate: 19 Blood Pressure: 122/75 BP Location: Left Arm Blood Pressure position: Sitting - Height Height: 5 ft 7 in - Weight Weight: 153 lb Weight measurement method: Standing scale - BMI Body Mass Index (BMI): 23.9 - Bowel Function Bowel Movement: No Urine Drug Screen - Test Device Lot number: [id number] Expiration date: 02/23/22 - Control Is test valid?: Yes - Results Drug screen NEGATIVE: No Urine drug screen results: [facility]-Cocaine Inpatient Rehab Admission - Rehab Decision to Admit Inpatient rehab admission?: No
[2020-03-09 11:05] VITALS: BMI 23.9
[2020-03-09] MEDS ORDERED: MENTHOL/PHENOL 1 EACH UD MM PRN (11:05)
[2020-03-09] MEDS ORDERED: chlordiazePOXIDE HCL 25 MG CAPSULE PO PRN (11:05)
[2020-03-09] MEDS ORDERED: MAGNESIUM CITRATE 300 ML BOTTLE PO PRN (11:05)
[2020-03-09] MEDS ORDERED: IBUPROFEN 400 MG TABLET (FP) PO PRN (11:05)
[2020-03-09] MEDS ORDERED: METHOCARBAMOL 500 MG TABLET PO PRN (11:05)
[2020-03-09] MEDS ORDERED: MAGNESIUM HYDROX 2400MG/30ML ORAL SUSPENSION 30 ML CUP PO PRN (11:05)
[2020-03-09] MEDS ORDERED: ACETAMINOPHEN 325 MG TABLET (FP) PO PRN ×2 (11:05)
[2020-03-09] MEDS ORDERED: BISMUTH SUBSALICYLATE 524 MG/30 ML UD PO PRN (11:05)
[2020-03-09] MEDS ORDERED: NICOTINE POLACRILEX 2 MG GUM BUC PRN (11:05)
[2020-03-09] MEDS ORDERED: MAG HYDROX/AL HYDROX/SIMETH 30 ML UNIT-DOSE CUP PO PRN (11:05)
[2020-03-09] MEDS ORDERED: ONDANSETRON *ODT* 4 MG TABLET SL ONE (12:00)
[2020-03-09] MEDS: NICOTINE 7 MG/24 HOURS TOPICAL PATCH TD SCH (12:02)
[2020-03-09] MEDS: chlordiazePOXIDE HCL 25 MG CAPSULE PO SCH ×3 (12:02→22:16)
[2020-03-09] MEDS: PRENATAL VITAMINS W/ FOLIC ACID TABLET (FP) PO SCH (12:02)
[2020-03-09] MEDS: BICTEGRAV/EMTRICIT/TENOFOV (BIKTARVY) 50-200-25 MG TABLET PO SCH (12:07)
[2020-03-09] MEDS: PREGABALIN 75 MG CAPSULE PO SCH ×2 (14:43→22:16)
[2020-03-09] MEDS: hydrOXYzine PAMOATE 25 MG CAPSULE (FP) PO SCH ×3 (14:43→22:16)
[2020-03-09 15:28] LABS: HEMATOCRIT 41.4 % (35.4-49); MCHC 33.9 g/dl (32.0-35.9); MEAN CELL VOLUME 100.1 fl (80-96); PLATELET COUNT 161 K/MM3 (134-434); RBC 4.13 M/mm3 (4.00-5.60); RDW 13.1 % (11.9-15.9); WHITE BLOOD COUNT 4.4 K/mm3 (4.0-10.0)
[2020-03-09 15:38] LABS: ALBUMIN 4.2 g/dl (3.4-5.0); BILIRUBIN,TOTAL 0.4 mg/dL (0.2-1); CALCIUM 8.5 mg/dL (8.5-10.1); CREATININE 1.1 mg/dL (0.55-1.3); POTASSIUM 4.5 mmol/L (3.5-5.1); TOT PROT 9.2 g/dl (6.4-8.2)
[2020-03-09] MEDS: THIAMINE HCL 100 MG TABLET (FP) PO SCH (22:16)
[2020-03-09] MEDS: MELATONIN 5 MG TABLETS PO SCH (22:17)
[2020-03-10] MEDS: chlordiazePOXIDE HCL 25 MG CAPSULE PO SCH ×4 (06:13→22:37)
[2020-03-10] MEDS: PREGABALIN 75 MG CAPSULE PO SCH ×3 (06:14→22:37)
[2020-03-10] MEDS: hydrOXYzine PAMOATE 25 MG CAPSULE (FP) PO SCH ×2 (06:14→11:48)
[2020-03-10] MEDS ORDERED: hydrOXYzine PAMOATE 25 MG CAPSULE (FP) PO PRN (10:07)
--- NOTE | 2020-03-10 10:12 | PN ---
S CIWA - CIWA Score Nausea/Vomitin-No Nausea/No Vomiting Muscle Tremors: 3 Anxiety: 3 Agitation: 3 Paroxysmal Sweats: 3 Orientation: 0-Oriented Tacttile Disturbances: 0-None Auditory Disturbances: 0-None Visual Disturbances: 0-None Headache: 0-None Present CIWA-Ar Total Score: 12 BHS Progress Note (SOAP) Subjective: sweats shakes poor appetite interrupted sleep body aches Objective: 03/10/20 10:11 Vital Signs Temperature 97.7 F 03/10/20 05:42 Pulse Rate 66 03/10/20 05:42 Respiratory Rate 18 03/10/20 05:42 Blood Pressure 100/57 L 03/10/20 05:42 O2 Sat by Pulse Oximetry (%) 98 03/10/20 05:42 Laboratory Tests 03/09/20 03/09/20 03/09/20 11:00 11:00 11:00 WBC 4.4 RBC 4.13 Hgb 14.0 Hct 41.4 D MCV 100.1 H MCH 34.0 H MCHC 33.9 RDW 13.1 Plt Count 161 D MPV 8.0 D Sodium 140 Potassium 4.5 Chloride 108 H Carbon Dioxide 21 Anion Gap 11 BUN 14.0 Creatinine 1.1 Est GFR (CKD-EPI)AfAm 91.52 Est GFR (CKD-EPI)NonAf 78.96 Random Glucose 75 Calcium 8.5 Total Bilirubin 0.4 AST 52 H ALT 53 Alkaline Phosphatase 136 H Total Protein 9.2 H Albumin 4.2 Syphilis Serology Non-reactive COVID-19 ([facility]) 03/09/20 11:00 WBC RBC Hgb Hct MCV MCH MCHC RDW Plt Count MPV Sodium Potassium Chloride Carbon Dioxide Anion Gap BUN Creatinine Est GFR (CKD-EPI)AfAm Est GFR (CKD-EPI)NonAf Random Glucose Calcium Total Bilirubin AST ALT Alkaline Phosphatase Total Protein Albumin Syphilis Serology COVID-19 ([facility]) Not detected labs noted aaox3 lying in bed no acute distress Assessment: 03/10/20 10:11 withdrawals Plan: continue detox increase fluids ensure plus BID for lunch and dinner
[2020-03-10] MEDS: PRENATAL VITAMINS W/ FOLIC ACID TABLET (FP) PO SCH (11:02)
[2020-03-10] MEDS: BICTEGRAV/EMTRICIT/TENOFOV (BIKTARVY) 50-200-25 MG TABLET PO SCH (11:03)
[2020-03-10] MEDS: NICOTINE 7 MG/24 HOURS TOPICAL PATCH TD SCH (11:03)
[2020-03-10] MEDS: SULFAMETHOXAZOLE/TRIMETHOPRIM 800MG/160MG D.S. TABLET PO SCH (11:03)
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
[2020-03-10] MEDS: THIAMINE HCL 100 MG TABLET (FP) PO SCH (22:37)
[2020-03-10] MEDS: traZODone HCL 50 MG TABLET (FP) PO SCH (22:37)
[2020-03-10] MEDS: MELATONIN 5 MG TABLETS PO SCH (23:00)
[2020-03-11] MEDS: chlordiazePOXIDE HCL 25 MG CAPSULE PO SCH ×4 (05:40→22:24)
[2020-03-11] MEDS: PREGABALIN 75 MG CAPSULE PO SCH ×3 (05:40→22:24)
--- NOTE | 2020-03-11 10:26 | PN ---
S CIWA - CIWA Score Nausea/Vomitin-No Nausea/No Vomiting Muscle Tremors: 3 Anxiety: 1-Mildly Anxious Agitation: 1-Slight > Activity Paroxysmal Sweats: 2 Orientation: 0-Oriented Tacttile Disturbances: 0-None Auditory Disturbances: 0-None Visual Disturbances: 0-None Headache: 0-None Present CIWA-Ar Total Score: 7 BHS Progress Note (SOAP) Subjective: sweats jumpy anxiety Objective: 03/11/20 10:25 Vital Signs Temperature 98.2 F 03/11/20 05:36 Pulse Rate 67 03/11/20 05:36 Respiratory Rate 20 03/11/20 05:36 Blood Pressure 123/77 03/11/20 05:36 O2 Sat by Pulse Oximetry (%) 98 03/11/20 05:36 Laboratory Tests 03/09/20 03/09/20 03/09/20 11:00 11:00 11:00 WBC 4.4 RBC 4.13 Hgb 14.0 Hct 41.4 D MCV 100.1 H MCH 34.0 H MCHC 33.9 RDW 13.1 Plt Count 161 D MPV 8.0 D Sodium 140 Potassium 4.5 Chloride 108 H Carbon Dioxide 21 Anion Gap 11 BUN 14.0 Creatinine 1.1 Est GFR (CKD-EPI)AfAm 91.52 Est GFR (CKD-EPI)NonAf 78.96 Random Glucose 75 Calcium 8.5 Total Bilirubin 0.4 AST 52 H ALT 53 Alkaline Phosphatase 136 H Total Protein 9.2 H Albumin 4.2 Syphilis Serology Non-reactive COVID-19 ([facility]) 03/09/20 11:00 WBC RBC Hgb Hct MCV MCH MCHC RDW Plt Count MPV Sodium Potassium Chloride Carbon Dioxide Anion Gap BUN Creatinine Est GFR (CKD-EPI)AfAm Est GFR (CKD-EPI)NonAf Random Glucose Calcium Total Bilirubin AST ALT Alkaline Phosphatase Total Protein Albumin Syphilis Serology COVID-19 ([facility]) Not detected aaox3 ambulating no acute distress labs noted Assessment: 03/11/20 10:25 withdrawals Plan: continue detox prn libirum is available pt is aware prn visitiril also available pt is aware
[2020-03-11] MEDS: BICTEGRAV/EMTRICIT/TENOFOV (BIKTARVY) 50-200-25 MG TABLET PO SCH (10:27)
[2020-03-11] MEDS: NICOTINE 7 MG/24 HOURS TOPICAL PATCH TD SCH (10:27)
[2020-03-11] MEDS: SULFAMETHOXAZOLE/TRIMETHOPRIM 800MG/160MG D.S. TABLET PO SCH (10:28)
[2020-03-11] MEDS: PRENATAL VITAMINS W/ FOLIC ACID TABLET (FP) PO SCH (10:28)
[2020-03-11] MEDS: traZODone HCL 50 MG TABLET (FP) PO SCH (22:24)
[2020-03-11] MEDS: MELATONIN 5 MG TABLETS PO SCH (22:24)
[2020-03-11] MEDS: THIAMINE HCL 100 MG TABLET (FP) PO SCH (22:24)
[2020-03-12] MEDS ORDERED: chlordiazePOXIDE HCL 10 MG CAPSULE PO PRN
[2020-03-12] MEDS: chlordiazePOXIDE HCL 10 MG CAPSULE PO SCH ×4 (06:16→22:10)
[2020-03-12] MEDS: PREGABALIN 75 MG CAPSULE PO SCH ×3 (06:16→22:10)
--- NOTE | 2020-03-12 08:41 | PN ---
[facility] CIWA - CIWA Score Nausea/Vomitin-Mild Nausea/No Vomiting Muscle Tremors: 2 Anxiety: 1-Mildly Anxious Agitation: 1-Slight > Activity Paroxysmal Sweats: 1-Minimal Palms Moist Orientation: 0-Oriented Tacttile Disturbances: 0-None Auditory Disturbances: 0-None Visual Disturbances: 0-None Headache: 1-Very Mild CIWA-Ar Total Score: 7 BHS Progress Note (SOAP) Subjective: pt states he is fine. Meds are good. O: Vital Signs - 24 hr 03/11/20 03/11/20 03/11/20 09:06 13:35 18:39 Temperature 97.3 F L 98.2 F 98.4 F Pulse Rate 80 79 79 Respiratory 18 17 18 Rate Blood Pressure 111/62 122/75 122/69 O2 Sat by Pulse 98 Oximetry (%) 03/11/20 20:38 Temperature 97.7 F Pulse Rate 82 Respiratory 18 Rate Blood Pressure 111/64 O2 Sat by Pulse 99 Oximetry (%) a/p Alcohol detox- continue protocol pt to talk to counselor today re discharge to rehab Laboratory Tests 03/09/20 03/09/20 03/09/20 11:00 11:00 11:00 WBC 4.4 RBC 4.13 Hgb 14.0 Hct 41.4 D MCV 100.1 H MCH 34.0 H MCHC 33.9 RDW 13.1 Plt Count 161 D MPV 8.0 D Sodium 140 Potassium 4.5 Chloride 108 H Carbon Dioxide 21 Anion Gap 11 BUN 14.0 Creatinine 1.1 Est GFR (CKD-EPI)AfAm 91.52 Est GFR (CKD-EPI)NonAf 78.96 Random Glucose 75 Calcium 8.5 Total Bilirubin 0.4 AST 52 H ALT 53 Alkaline Phosphatase 136 H Total Protein 9.2 H Albumin 4.2 Syphilis Serology Non-reactive COVID-19 ([facility]) 03/09/20 11:00 WBC RBC Hgb Hct MCV MCH MCHC RDW Plt Count MPV Sodium Potassium Chloride Carbon Dioxide Anion Gap BUN Creatinine Est GFR (CKD-EPI)AfAm Est GFR (CKD-EPI)NonAf Random Glucose Calcium Total Bilirubin AST ALT Alkaline Phosphatase Total Protein Albumin Syphilis Serology COVID-19 ([facility]) Not detected
[2020-03-12] MEDS: SULFAMETHOXAZOLE/TRIMETHOPRIM 800MG/160MG D.S. TABLET PO SCH (10:04)
[2020-03-12] MEDS: NICOTINE 7 MG/24 HOURS TOPICAL PATCH TD SCH (10:04)
[2020-03-12] MEDS: PRENATAL VITAMINS W/ FOLIC ACID TABLET (FP) PO SCH (10:05)
[2020-03-12] MEDS: BICTEGRAV/EMTRICIT/TENOFOV (BIKTARVY) 50-200-25 MG TABLET PO SCH (10:05)
[2020-03-12] MEDS: THIAMINE HCL 100 MG TABLET (FP) PO SCH (22:10)
[2020-03-12] MEDS: traZODone HCL 50 MG TABLET (FP) PO SCH (22:11)
[2020-03-12] MEDS: MELATONIN 5 MG TABLETS PO SCH (22:11)
[2020-03-13] MEDS ORDERED: chlordiazePOXIDE HCL 10 MG CAPSULE PO SCH (05:00)
[2020-03-13] MEDS: PREGABALIN 75 MG CAPSULE PO SCH (05:23)
[2020-03-13 09:32] VITALS: BP 103/62; PULSE 80; TEMP 97.3
[2020-03-13] MEDS: BICTEGRAV/EMTRICIT/TENOFOV (BIKTARVY) 50-200-25 MG TABLET PO SCH (10:06)
[2020-03-13] MEDS: PRENATAL VITAMINS W/ FOLIC ACID TABLET (FP) PO SCH (10:06)
[2020-03-13] MEDS: SULFAMETHOXAZOLE/TRIMETHOPRIM 800MG/160MG D.S. TABLET PO SCH (10:06)
[2020-03-13] MEDS: NICOTINE 7 MG/24 HOURS TOPICAL PATCH TD SCH (10:06)
--- NOTE | 2020-03-13 12:04 | PN ---
[facility] CIWA - CIWA Score Nausea/Vomitin-No Nausea/No Vomiting Muscle Tremors: None Anxiety: 1-Mildly Anxious Agitation: 1-Slight > Activity Paroxysmal Sweats: 1-Minimal Palms Moist Orientation: 0-Oriented Tacttile Disturbances: 0-None Auditory Disturbances: 0-None Visual Disturbances: 0-None Headache: 0-None Present CIWA-Ar Total Score: 3 BHS Progress Note (SOAP) Subjective: Complaints of mild anxiety and sweats. Objective: 03/13/20 12:03 Vital Signs 03/13/20 03/13/20 05:10 08:43 Temperature 98.2 F 97.3 F L Pulse Rate 69 80 Respiratory 16 18 Rate Blood Pressure 131/73 103/62 O2 Sat by Pulse 98 Oximetry (%) Laboratory Last Values WBC 4.4 K/mm3 (4.0-10.0) 03/09/20 11:00 RBC 4.13 M/mm3 (4.00-5.60) 03/09/20 11:00 Hgb 14.0 GM/dL (11.7-16.9) 03/09/20 11:00 Hct 41.4 % (35.4-49) D 03/09/20 11:00 MCV 100.1 fl (80-96) H 03/09/20 11:00 MCH 34.0 pg (25.7-33.7) H 03/09/20 11:00 MCHC 33.9 g/dl (32.0-35.9) 03/09/20 11:00 RDW 13.1 % (11.9-15.9) 03/09/20 11:00 Plt Count 161 K/MM3 (134-434) D 03/09/20 11:00 MPV 8.0 fl (7.5-11.1) D 03/09/20 11:00 Sodium 140 mmol/L (136-145) 03/09/20 11:00 Potassium 4.5 mmol/L (3.5-5.1) 03/09/20 11:00 Chloride 108 mmol/L (98-107) H 03/09/20 11:00 Carbon Dioxide 21 mmol/L (21-32) 03/09/20 11:00 Anion Gap 11 MMOL/L (8-16) 03/09/20 11:00 BUN 14.0 mg/dL (7-18) 03/09/20 11:00 Creatinine 1.1 mg/dL (0.55-1.3) 03/09/20 11:00 Est GFR (CKD-EPI)AfAm 91.52 03/09/20 11:00 Est GFR (CKD-EPI)NonAf 78.96 03/09/20 11:00 Random Glucose 75 mg/dL (74-106) 03/09/20 11:00 Calcium 8.5 mg/dL (8.5-10.1) 03/09/20 11:00 Total Bilirubin 0.4 mg/dL (0.2-1) 03/09/20 11:00 AST 52 U/L (15-37) H 03/09/20 11:00 ALT 53 U/L (13-61) 03/09/20 11:00 Alkaline Phosphatase 136 U/L (45-117) H 03/09/20 11:00 Total Protein 9.2 g/dl (6.4-8.2) H 03/09/20 11:00 Albumin 4.2 g/dl (3.4-5.0) 03/09/20 11:00 Syphilis Serology Non-reactive (NONREACTIVE) 03/09/20 11:00 COVID-19 ([facility]) Not detected (Not Detected) 03/09/20 11:00 labs noted. Assessment: 03/13/20 12:04 Alert and oriented x 3, in no acute respiratory distress. Full ROM, ambulating in the unit without assistance. Mild withdrawal symptoms. Plan: continue detox protocol.
--- NOTE | 2020-03-13 12:14 | DS ---
[facility] Detox Discharge Summary Admission Date: 03/09/20 Discharge Date: 03/13/20 - History Present History: Alcohol Dependence, Cocaine Dependence Additional Comments: Alert and oriented x 3, in no acute respiratory distress. Full ROM, ambulating in the unit without assistance. Mild withdrawal symptoms. For discharge tomorrow but want to go home now, does not need refills for medications. Pertinent Past History: History of HIV with neuropathy,Hep c ( treated), alcohol, nicotine and cocaine use disorder. - Physical Exam Results Vital Signs: Vital Signs Temperature 97.3 F L 03/13/20 08:43 Pulse Rate 80 03/13/20 08:43 Respiratory Rate 18 03/13/20 08:43 Blood Pressure 103/62 03/13/20 08:43 O2 Sat by Pulse Oximetry (%) 98 03/13/20 05:10 Vital Signs 03/13/20 03/13/20 05:10 08:43 Temperature 98.2 F 97.3 F L Pulse Rate 69 80 Respiratory 16 18 Rate Blood Pressure 131/73 103/62 O2 Sat by Pulse 98 Oximetry (%) Laboratory Last Values WBC 4.4 K/mm3 (4.0-10.0) 03/09/20 11:00 RBC 4.13 M/mm3 (4.00-5.60) 03/09/20 11:00 Hgb 14.0 GM/dL (11.7-16.9) 03/09/20 11:00 Hct 41.4 % (35.4-49) D 03/09/20 11:00 MCV 100.1 fl (80-96) H 03/09/20 11:00 MCH 34.0 pg (25.7-33.7) H 03/09/20 11:00 MCHC 33.9 g/dl (32.0-35.9) 03/09/20 11:00 RDW 13.1 % (11.9-15.9) 03/09/20 11:00 Plt Count 161 K/MM3 (134-434) D 03/09/20 11:00 MPV 8.0 fl (7.5-11.1) D 03/09/20 11:00 Sodium 140 mmol/L (136-145) 03/09/20 11:00 Potassium 4.5 mmol/L (3.5-5.1) 03/09/20 11:00 Chloride 108 mmol/L (98-107) H 03/09/20 11:00 Carbon Dioxide 21 mmol/L (21-32) 03/09/20 11:00 Anion Gap 11 MMOL/L (8-16) 03/09/20 11:00 BUN 14.0 mg/dL (7-18) 03/09/20 11:00 Creatinine 1.1 mg/dL (0.55-1.3) 03/09/20 11:00 Est GFR (CKD-EPI)AfAm 91.52 03/09/20 11:00 Est GFR (CKD-EPI)NonAf 78.96 03/09/20 11:00 Random Glucose 75 mg/dL (74-106) 03/09/20 11:00 Calcium 8.5 mg/dL (8.5-10.1) 03/09/20 11:00 Total Bilirubin 0.4 mg/dL (0.2-1) 03/09/20 11:00 AST 52 U/L (15-37) H 03/09/20 11:00 ALT 53 U/L (13-61) 03/09/20 11:00 Alkaline Phosphatase 136 U/L (45-117) H 03/09/20 11:00 Total Protein 9.2 g/dl (6.4-8.2) H 03/09/20 11:00 Albumin 4.2 g/dl (3.4-5.0) 03/09/20 11:00 Syphilis Serology Non-reactive (NONREACTIVE) 03/09/20 11:00 COVID-19 ([facility]) Not detected (Not Detected) 03/09/20 11:00 Labs noted. Pertinent Admission Physical Exam Findings: Withdrawal symptoms. - Treatment Hospital Course: Detox Protocol Followed, Detoxed Safely, Responded well, Discharged Condition Good - Medication Discharge Medications: Ambulatory Orders Pregabalin [Lyrica -] 150 mg PO TID 03/30/18 Bictegrav/Emtricit/Tenofov Ala [Biktarvy 50-200-25 mg Tablet] 1 each PO DAILY 12/04/18 Sulfamethoxazole/Trimethoprim [Sulfamethoxazole-Tmp Ds Tablet] 1 each PO DAILY 01/29/20 traZODone HCL [Trazodone HCl] 50 mg PO HS 03/09/20 - Diagnosis (1) Alcohol dependence with uncomplicated withdrawal Current Visit: Yes Status: Acute (2) Cocaine use disorder Current Visit: Yes Status: Chronic (3) HIV (human immunodeficiency virus infection) Current Visit: Yes Status: Chronic Qualifiers: HIV symptom status: asymptomatic Qualified Code(s): Z21 - Asymptomatic human immunodeficiency virus [HIV] infection status (4) 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
[2020-03-14] MEDS ORDERED: chlordiazePOXIDE HCL 10 MG CAPSULE PO ONE (05:00)
== END 2020-03-13 12:43 | disposition home or self-care (01) | DRG 774 ==
LOC: YASAS 10:23 → Y6N 11:26
PROVIDERS: ADMIT Allergy & Immunology; ATTEND Allergy & Immunology
PROC: HZ2ZZZZ Detoxification Services for Substance Abuse Treatment (ICD-10-PCS; principal; 2020-03-09)
DX: F10.230 Alcohol dependence with withdrawal, uncomplicated (principal); F14.20 Cocaine dependence, uncomplicated; F17.210 Nicotine dependence, cigarettes, uncomplicated; F19.282 Other psychoactive substance dependence with psychoactive substance-induced sleep disorder; F19.280 Other psychoactive substance dependence with psychoactive substance-induced anxiety disorder; Z21 Asymptomatic human immunodeficiency virus [HIV] infection status; G62.89 Other specified polyneuropathies; D69.6 Thrombocytopenia, unspecified; G47.00 Insomnia, unspecified; Z62.810 Personal history of physical and sexual abuse in childhood; Z86.19 Personal history of other infectious and parasitic diseases; Z56.0 Unemployment, unspecified
CPT/HCPCS: 36415; 80053; 85027; 86780; U0003